=== PATIENT | female | born 1995 | race Caucasian/White ===

== ENCOUNTER → 2016-09-19 | Outpatient (CLI) | payer BC, OTHER ==
[~2016-09-19] MED LIST: PRENTAB26 PO; VNTHFA/IN INH; ZNTT/150 PO
[2016-09-19 15:25] LABS: URINE APPEARANCE CLOUDY (CLEAR); URINE BILIRUBIN NEG (NEG); URINE COLOR YELLOW; URINE EPITHELIAL CELL AUTO >30 /lpf (0-5); URINE NITRITE NEG (NEG); URINE SPECIFIC GRAVITY 1.024 (1.000-1.030); UROBILINOGEN NEG (NEG)
[2016-09-19 15:29] LABS: MANUAL MICROSCOPIC REQUIRED? NO; REVIEW REQ? YES
[2016-09-19 15:53] LABS: URINE MUCUS PRESENT (NONE PRSENT)
[2016-09-22 02:29] LABS: CHLAMYDIA TRACH RNA*** NOT DETECTED (NOT DETECTED); GC (NEIS GONORRHOEAE)RNA** NOT DETECTED (NOT DETECTED)
== END | disposition home or self-care (01) ==
LOC: C.LABSPEC 13:54
PROVIDERS: ATTEND Obstetrics & Gynecology
DX: Z34.90 Encounter for supervision of normal pregnancy, unspecified, unspecified trimester (principal)

== ENCOUNTER → 2016-09-19 | Outpatient (CLI) | payer BC, OTHER ==
[2016-09-19 12:15] LABS: BASO % 0.2 %; BASO ABS # 0.02 K/uL (0-0.2); COMPLETE YES; EOS % 0.6 %; HEMATOCRIT 36.9 % (37-47); IG% 0.3 %; LYMPH % 15.7 %; LYMPH ABS # 1.62 K/uL (1.2-3.4); MEAN CELL VOLUME 88.9 fL (80-100); MEAN CORPUSCULAR HEMOGLOBIN 30.6 pg (25-34); MEAN CORPUSCULAR HGB CONC 34.4 g/dl (32-36); MEAN PLATELET VOLUME 9.5 fL (7.4-10.4); MONO % 5.8 %; NEUT % 77.4 %; PLATELET COUNT 296 K/uL (130-400); RED BLOOD COUNT 4.15 M/uL (4.2-5.4); WHITE BLOOD COUNT 10.34 K/uL (4.8-10.8)
[2016-09-19 12:23] LABS: ALT/SGPT 17 U/L (12-78); AST/SGOT 8 U/L (15-37); BLOOD UREA NITROGEN 9 mg/dl (7-18); BUN/CREATININE RATIO 19.8 (10-20); CALCIUM 8.8 mg/dl (8.5-10.1); CARBON DIOXIDE 22 mmol/L (21-32); CHLORIDE 108 mmol/L (98-107); CREATININE 0.45 mg/dl (0.60-1.20); GLUCOSE 94 mg/dl (70-99); POTASSIUM 3.6 mmol/L (3.5-5.1); SODIUM 140 mmol/L (136-145)
[2016-09-19 12:26] LABS: ALB/GLOB RATIO 0.9 (0.9-2); ALKALINE PHOSPHATASE 65 U/L (45-117)
== END | disposition home or self-care (01) ==
LOC: C.LAB1850 10:22
PROVIDERS: ATTEND Obstetrics & Gynecology
DX: Z34.90 Encounter for supervision of normal pregnancy, unspecified, unspecified trimester (principal)

== ENCOUNTER → 2016-09-24 | Outpatient (CLI) | payer BC, OTHER ==
[2016-09-24 18:14] LABS: PATIENT HEIGHT 165.1 cm
[2016-09-24 19:42] LABS: URINE TOTAL PROTEIN 14.2 mg/dl (0-11.9)
[2016-09-24 20:49] LABS: CREATININE 0.43 mg/dl (0.6-1.2); URINE TOTAL PROTEIN CALC 262.7 mg/24 hr (0-149.1)
== END | disposition home or self-care (01) ==
LOC: C.LAB 17:45
PROVIDERS: ATTEND Obstetrics & Gynecology
DX: O09.91 Supervision of high risk pregnancy, unspecified, first trimester (principal); Z3A.00 Weeks of gestation of pregnancy not specified

== ENCOUNTER 2016-10-11 19:35 | Emergency (ER) | payer BC, OTHER ==
[~2016-10-11] VITALS: Ht 162.6 cm; Wt 94.7 kg
[~2016-10-11 19:35] MED LIST changes: -VNTHFA/IN INH; -ZNTT/150 PO
[2016-10-11 19:37] VITALS: TEMP 36.4; Ht 162.6 cm; Wt 94.7 kg
[2016-10-11 21:39] LABS: BASO % 0.1 %; BASO ABS # 0.01 K/uL (0-0.2); COMPLETE YES; EOS % 0.9 %; HEMATOCRIT 35.8 % (37-47); IG% 0.4 %; LYMPH % 21.6 %; LYMPH ABS # 2.27 K/uL (1.2-3.4); MEAN CORPUSCULAR HEMOGLOBIN 30.7 pg (25-34); MEAN CORPUSCULAR HGB CONC 34.9 g/dl (32-36); MEAN PLATELET VOLUME 9.6 fL (7.4-10.4); MONO % 7.2 %; NEUT % 69.8 %; PLATELET COUNT 276 K/uL (130-400); RED BLOOD COUNT 4.07 M/uL (4.2-5.4); WHITE BLOOD COUNT 10.49 K/uL (4.8-10.8)
[2016-10-11 21:49] LABS: ALT/SGPT 17 U/L (12-78); BLOOD UREA NITROGEN 7 mg/dl (7-18); CALCIUM 9.2 mg/dl (8.5-10.1); CARBON DIOXIDE 23 mmol/L (21-32); CHLORIDE 106 mmol/L (98-107); CREATININE 0.46 mg/dl (0.60-1.20); GLUCOSE 98 mg/dl (70-99); POTASSIUM 3.5 mmol/L (3.5-5.1); SODIUM 139 mmol/L (136-145)
[2016-10-11 21:52] LABS: ALB/GLOB RATIO 0.8 (0.9-2); ALKALINE PHOSPHATASE 60 U/L (45-117); AST/SGOT 7 U/L (15-37)
--- NOTE | 2016-10-11 23:43 | EMERGENCY ROOM VISIT NOTE ---
History Report prepared by Martha: Ronnie Yan Under the Supervision of: Dr. Alexis Barger D.O. First contact with patient: 21:29 Chief Complaint: PELVIC PAIN Stated Complaint: LOW PELVIC PAIN, GETTING SICK, UNABLE TO EAT MUCH Nursing Triage Summary: Patient states "I was seen at [place] [facility] on saturday for pelvic pain and they found something on my uterus and I'm 4 months . I seen my baby doctor and I just can't get rid of the pain." History of Present Illness The patient is a 20 year old female who presents to the Emergency Room with complaints of persistent lower pelvic cramping pain beginning about 2 weeks ago. She reports she is 4 months and that her pain is worsened with bending or sitting. She notes she went to the ER in [place] and after blood work and an US, she was told it could be a cyst, tumor, or mass of blood on her uterus. She followed with her continuity tester and was told to take Tylenol for the pain. The patient states that the Tylenol is not helping to relieve her symptoms. She admits to being once before and gave . She notes she did have preeclampsia with the first . Source of History: patient Onset: about 2 weeks ago Position: pelvis (lower) Quality: cramping, other (pelvic pain) Review of Systems See HPI for pertinent positives & negatives. A total of 10 systems reviewed and were otherwise negative. Past Medical & Surgical Medical Problems: (1) induction of labor Family History No pertinent family history stated. Social History Smoking Status: Never Smoker Alcohol Use: none Drug Use: none Marital Status: single Current/Historical Medications Scheduled Multivit/Min/Iron/Fol Ac/Pren ( Vitamin), 1 TAB PO DAILY Allergies Coded Allergies: No Known Allergies (Unverified , 10/11/16) Physical Exam Vital Signs Date Time Temp Pulse Resp B/P Pulse Ox O2 Delivery O2 Flow Rate FiO2 10/11/16 21:11 91 18 129/80 98 Room Air 10/11/16 19:37 36.4 99 18 133/93 98 Room Air Physical Exam CONSTITUTIONAL/VITAL SIGNS: Reviewed / noted above. GENERAL: Non-toxic in appearance. INTEGUMENTARY: Warm, dry, and [place]. HEAD: Normocephalic. EYES: without scleral icterus or trauma. ENT/OROPHARYNX: clear and moist. LYMPHADENOPATHY/NECK: Is supple without lymphadenopathy or meningismus. RESPIRATORY: Lungs clear and equal. CARDIOVASCULAR: Regular rate and rhythm. GI/ABDOMEN: Soft and nontender. No organomegaly or pulsatile mass. No rebound or guarding. Normal bowel sounds. Slightly abdomen. EXTREMITIES: Warm and well perfused. BACK: No CVA tenderness. NEUROLOGICAL: Intact without focal deficits. PSYCHIATRIC: normal affect. MUSCULOSKELETAL: Normally developed with good muscle tone. Medical Decision & Procedures ER Provider Diagnostic Interpretation: Radiology results are stated below per my review and radiologist interpretation: US OB 2nd TRIMESTER: IUP measuring 14 weeks 5 days with heart rate of 157 bpm. Anterior placenta without abruption or previa. A myometrial contraction is noted during the exam. Grossly normal amniotic fluid volume. Closed cervix, 3.6 cm long. Unremarkable right ovary. Left ovary not identified. Radiologist: Elieser Nathan M.D. Laboratory Results 10/11/16 20:20 Red Blood Count 4.07, Mean Corpuscular Volume 88.0, Mean Corpuscular Hemoglobin 30.7, Mean Corpuscular Hemoglobin Concent 34.9, Mean Platelet Volume 9.6, Neutrophils (%) (Auto) 69.8, Lymphocytes (%) (Auto) 21.6, Monocytes (%) (Auto) 7.2, Eosinophils (%) (Auto) 0.9, Basophils (%) (Auto) 0.1, Neutrophils # (Auto) 7.32, Lymphocytes # (Auto) 2.27, Monocytes # (Auto) 0.76, Eosinophils # (Auto) 0.09, Basophils # (Auto) 0.01 10/11/16 20:20 Test 10/11/16 20:20 White Blood Count 10.49 K/uL (4.8-10.8) Red Blood Count 4.07 M/uL (4.2-5.4) Hemoglobin 12.5 g/dL (12.0-16.0) Hematocrit 35.8 % (37-47) Mean Corpuscular Volume 88.0 fL (80-100) Mean Corpuscular Hemoglobin 30.7 pg (25-34) Mean Corpuscular Hemoglobin Concent 34.9 g/dl (32-36) Platelet Count 276 K/uL (130-400) Mean Platelet Volume 9.6 fL (7.4-10.4) Neutrophils (%) (Auto) 69.8 % Lymphocytes (%) (Auto) 21.6 % Monocytes (%) (Auto) 7.2 % Eosinophils (%) (Auto) 0.9 % Basophils (%) (Auto) 0.1 % Neutrophils # (Auto) 7.32 K/uL (1.4-6.5) Lymphocytes # (Auto) 2.27 K/uL (1.2-3.4) Monocytes # (Auto) 0.76 K/uL (0.11-0.59) Eosinophils # (Auto) 0.09 K/uL (0-0.5) Basophils # (Auto) 0.01 K/uL (0-0.2) RDW Standard Deviation 39.9 fL (36.4-46.3) RDW Coefficient of Variation 12.4 % (11.5-14.5) Immature Granulocyte % (Auto) 0.4 % Immature Granulocyte # (Auto) 0.04 K/uL (0.00-0.02) Anion Gap 10.0 mmol/L (3-11) Est Creatinine Clear Calc Drug Dose 214.2 ml/min Estimated GFR () > 150.0 Estimated GFR (Non- 141.2 BUN/Creatinine Ratio 15.0 (10-20) Calcium Level 9.2 mg/dl (8.5-10.1) Total Bilirubin 0.2 mg/dl (0.2-1) Aspartate Amino Transf (AST/SGOT) 7 U/L (15-37) Alanine Aminotransferase (ALT/SGPT) 17 U/L (12-78) Alkaline Phosphatase 60 U/L (45-117) Total Protein 6.9 gm/dl (6.4-8.2) Albumin 3.1 gm/dl (3.4-5.0) Globulin 3.8 gm/dl (2.5-4.0) Albumin/Globulin Ratio 0.8 (0.9-2) Human Chorionic Gonadotropin, Quant 29811 mIU/mL Laboratory results as stated above per my review. ED Course 2128: Previous medical records were reviewed. The patient was evaluated in room A4B. A complete history and physical examination was performed. 5: On reevaluation, the patient is doing well. I discussed the results and findings with the patient. She verbalized agreement of the treatment plan. The patient was discharged home. Medical Decision Differential considered: pancreatitis, hepatitis, or acute cholecystitis, AAA, UTI, pyelonephritis, kidney stones, appendicitis, diverticulitis, shingles, bowel obstruction mesenteric ischemia, intussusception,hernia, ovarian torsion, ruptured ovarian cyst,ectopic , . This is a 20-year-old female who presents to the ED with a chief complaint of lower abdominal pain. The patient has been seen at [facility] earlier in the week and had an ultrasound. She states that the ultrasounds showed something abnormal. She followed up with Dr. Sanchez, her FUR REPAIRER on Saturday. She was told to take Tylenol for the pain. She presents today for reevaluation. She continues having the pain. She denies any vomiting or diarrhea. No constipation. No chest pains or shortness of breath. No urinary symptoms. No vaginal bleeding or abnormal discharge. The patient's physical exam revealed a slightly gravid abdomen without tenderness. Her exam is otherwise unremarkable. CBC and complete metabolic panel were unremarkable. Pelvic ultrasound is noted above. There were no cerumen abnormalities. The patient was felt to be stable for discharge. Impression Primary Impression: Lower abdominal pain Scribe Attestation The scribe's documentation has been prepared under my direction and personally reviewed by me in its entirety. I confirm that the note above accurately reflects all work, treatment, procedures, and medical decision making performed by me. Departure Information Dispostion Home / Self-Care Referrals Silvano Mtz M.D. ([place]) (PCP) Patient Instructions ED Pelvic Pain Mitra [facility] Additional Instructions Follow-up with your continuity tester for further evaluation. Follow-up with your doctor for further care and evaluation in 1-2 days. Return to the emergency department for worsening or new symptoms or any concerns. You have been examined and treated today on an emergency basis only. This is not a substitute for, or an effort to provide, complete comprehensive medical care. It is impossible to recognize and treat all injuries or illnesses in a single emergency department visit. It is therefore important that you follow up closely with your doctor. Call as soon as possible for an appointment.
[2016-10-11 23:50] VITALS: BP 119/72; PULSE 93; O2SAT 96
--- NOTE | 2016-10-12 07:06 | DIAGNOSTIC IMAGING REPORT ---
LIMITED (US) CLINICAL HISTORY: pelvic pain 4 months COMPARISON STUDY: No previous studies for comparison. FINDINGS: A single alive intrauterine gestation was visualized. The heart rate was 157. The femur measured 1.6 cm corresponding to an estimated postmenstrual age of 14 weeks and 5 days. The placenta was anterior. The maternal cervix was closed. Amniotic fluid volume appeared within normal limits. There is an anterior myometrial contraction. A detailed anatomic study was not performed. IMPRESSION: Single live intrauterine gestation. The estimated postmenstrual age is 14 weeks and 5 days. The placenta was anterior. There is no evidence of previa. Electronically signed by: Justyn Alejandra M.D. 10/12/2016 7:05 AM Dictated Date/Time: 10/12/2016 7:03 AM
== END 2016-10-11 23:47 | disposition home or self-care (01) ==
LOC: C.EDB 19:36 → C.EDA 23:47
DX: R10.2 Pelvic and perineal pain (principal); O36.72X1 Maternal care for viable fetus in abdominal pregnancy, second trimester, fetus 1; Z3A.14 14 weeks gestation of pregnancy

== ENCOUNTER → 2016-10-24 | Outpatient (CLI) | payer BC, OTHER ==
[~2016-10-24] MED LIST changes: +VNTHFA/IN INH; +ZNTT/150 PO
[2016-10-24 20:00] LABS: GTGD 50 Grams
== END | disposition home or self-care (01) ==
LOC: C.LAB1850 16:30
PROVIDERS: ATTEND Obstetrics & Gynecology
DX: O09.91 Supervision of high risk pregnancy, unspecified, first trimester (principal); Z3A.00 Weeks of gestation of pregnancy not specified

== ENCOUNTER → 2017-01-14 | Outpatient (CLI) | payer BC, OTHER ==
[2017-01-14 15:50] LABS: HEMATOCRIT 37.8 % (37-47)
[2017-01-14 17:06] LABS: URINE APPEARANCE CLEAR (CLEAR); URINE BILIRUBIN NEG (NEG); URINE COLOR YELLOW; URINE EPITHELIAL CELL AUTO 20-30 /lpf (0-5); URINE NITRITE NEG (NEG); URINE SPECIFIC GRAVITY 1.019 (1.000-1.030); UROBILINOGEN NEG (NEG)
[2017-01-14 17:15] LABS: MANUAL MICROSCOPIC REQUIRED? NO; REVIEW REQ? NO
[2017-01-14 18:20] LABS: GTGD 50 Grams
== END | disposition home or self-care (01) ==
LOC: C.LAB1850 14:22
PROVIDERS: ATTEND Obstetrics & Gynecology
DX: Z34.90 Encounter for supervision of normal pregnancy, unspecified, unspecified trimester (principal)

== ENCOUNTER → 2017-02-08 | Outpatient (CLI) | payer BC, OTHER ==
[~2017-02-08] VITALS: Ht 165.1 cm; Wt 93.0 kg
[2017-02-08 11:39] VITALS: Ht 165.1 cm; Wt 93.0 kg
[2017-02-08 11:41] LABS: URINE APPEARANCE CLEAR (CLEAR); URINE BILIRUBIN NEG (NEG); URINE COLOR YELLOW; URINE NITRITE NEG (NEG); URINE SPECIFIC GRAVITY 1.021 (1.000-1.030); UROBILINOGEN NEG (NEG)
[2017-02-08 11:59] LABS: MANUAL MICROSCOPIC REQUIRED? NO; REVIEW REQ? YES
[2017-02-08 12:17] LABS: URINE MUCUS PRESENT (NONE PRSENT)
== END ==
LOC: C.OPB 10:26 → C.LD 10:27 → UNDOADMIN 11:15 → C.OPB 11:24
PROVIDERS: ATTEND Obstetrics & Gynecology
DX: O26.893 Other specified pregnancy related conditions, third trimester (principal); R10.30 Lower abdominal pain, unspecified; Z3A.31 31 weeks gestation of pregnancy; Z87.440 Personal history of urinary (tract) infections

== ENCOUNTER → 2017-02-26 | Outpatient (CLI) | payer BC, OTHER | END | disposition home or self-care (01) | LOC: C.LABSPEC 11:17 | PROVIDERS: ATTEND Obstetrics & Gynecology | DX: N76.1 Subacute and chronic vaginitis (principal) ==

== ENCOUNTER → 2017-03-14 | Outpatient (CLI) | payer BC, OTHER | END | disposition home or self-care (01) | LOC: C.LABSPEC 17:44 | PROVIDERS: ATTEND Obstetrics & Gynecology | DX: Z34.83 Encounter for supervision of other normal pregnancy, third trimester (principal) ==

== ENCOUNTER → 2017-03-18 | Outpatient (CLI) | payer BC, OTHER ==
[2017-03-18 16:41] LABS: BASO % 0.1 %; BASO ABS # 0.01 K/uL (0-0.2); COMPLETE YES; EOS % 0.4 %; HEMATOCRIT 37.8 % (37-47); IG% 0.5 %; LYMPH % 17.9 %; LYMPH ABS # 1.71 K/uL (1.2-3.4); MEAN CELL VOLUME 88.3 fL (80-100); MEAN CORPUSCULAR HEMOGLOBIN 29.7 pg (25-34); MEAN CORPUSCULAR HGB CONC 33.6 g/dl (32-36); MEAN PLATELET VOLUME 10.4 fL (7.4-10.4); MONO % 6.4 %; NEUT % 74.7 %; PLATELET COUNT 220 K/uL (130-400); RED BLOOD COUNT 4.28 M/uL (4.2-5.4); WHITE BLOOD COUNT 9.56 K/uL (4.8-10.8)
[2017-03-18 17:02] LABS: ALT/SGPT 14 U/L (12-78); AST/SGOT 11 U/L (15-37); CREATININE 0.45 mg/dl (0.60-1.20); URIC ACID 4.3 mg/dl (2.6-7.2)
== END | disposition home or self-care (01) ==
LOC: C.LAB1850 16:05
PROVIDERS: ATTEND Obstetrics & Gynecology
DX: O10.013 Pre-existing essential hypertension complicating pregnancy, third trimester (principal); Z3A.00 Weeks of gestation of pregnancy not specified

== ENCOUNTER 2017-03-20 20:34 | Outpatient (CLI) | payer BC, OTHER ==
[~2017-03-20] VITALS: Ht 162.6 cm; Wt 97.5 kg
[~2017-03-20 20:34] MED LIST changes: -VNTHFA/IN INH; -ZNTT/150 PO
[2017-03-20] MEDS ORDERED: VNTHFA/IN INH (21:42)
[2017-03-20 21:43] VITALS: Ht 162.6 cm; Wt 97.5 kg
[2017-03-20 22:00] LABS: BASO % 0.1 %; BASO ABS # 0.01 K/uL (0-0.2); COMPLETE YES; EOS % 0.5 %; HEMATOCRIT 37.4 % (37-47); IG% 1.1 %; LYMPH % 23.1 %; LYMPH ABS # 2.18 K/uL (1.2-3.4); MEAN CORPUSCULAR HEMOGLOBIN 29.6 pg (25-34); MEAN CORPUSCULAR HGB CONC 33.7 g/dl (32-36); MEAN PLATELET VOLUME 10.3 fL (7.4-10.4); MONO % 7.4 %; NEUT % 67.8 %; PLATELET COUNT 224 K/uL (130-400); RED BLOOD COUNT 4.25 M/uL (4.2-5.4); WHITE BLOOD COUNT 9.45 K/uL (4.8-10.8)
[2017-03-20 22:25] LABS: ALT/SGPT 13 U/L (12-78); BLOOD UREA NITROGEN 8 mg/dl (7-18); BUN/CREATININE RATIO 17.7 (10-20); CALCIUM 8.8 mg/dl (8.5-10.1); CARBON DIOXIDE 21 mmol/L (21-32); CHLORIDE 109 mmol/L (98-107); CREATININE 0.43 mg/dl (0.60-1.20); GLUCOSE 80 mg/dl (70-99); POTASSIUM 3.6 mmol/L (3.5-5.1); SODIUM 137 mmol/L (136-145)
[2017-03-20 22:30] LABS: ALB/GLOB RATIO 0.5 (0.9-2); ALKALINE PHOSPHATASE 204 U/L (45-117); AST/SGOT 11 U/L (15-37); URIC ACID 3.8 mg/dl (2.6-7.2)
== END 2017-03-20 23:12 | disposition home or self-care (01) ==
LOC: C.LD 20:34 → C.OPB 20:34
PROVIDERS: ATTEND Obstetrics & Gynecology
DX: O99.89 Other specified diseases and conditions complicating pregnancy, childbirth and the puerperium (principal); R51 Headache; O16.3 Unspecified maternal hypertension, third trimester; Z3A.37 37 weeks gestation of pregnancy

== ENCOUNTER → 2017-03-20 | Outpatient (CLI) | payer BC, OTHER ==
[2017-03-20 15:40] LABS: PATIENT HEIGHT 162.6 cm
[2017-03-20 17:12] LABS: URINE TOTAL PROTEIN 14.3 mg/dl (0-11.9)
[2017-03-20 18:37] LABS: URINE TOTAL PROTEIN CALC 228.8 mg/24 hr (0-149.1)
[2017-03-20 18:38] LABS: CREATININE 0.48 mg/dl (0.6-1.2)
== END | disposition home or self-care (01) ==
LOC: C.LAB1850 15:27
PROVIDERS: ATTEND Obstetrics & Gynecology
DX: O10.013 Pre-existing essential hypertension complicating pregnancy, third trimester (principal)

== ENCOUNTER 2017-03-28 15:47 | Inpatient (IN) | payer BC, OTHER ==
[~2017-03-28] VITALS: Ht 165.1 cm; Wt 97.0 kg
[~2017-03-28 15:47] MED LIST changes: +VNTHFA/IN INH
[2017-03-28 16:26] LABS: BASO % 0.1 %; BASO ABS # 0.01 K/uL (0-0.2); EOS % 0.6 %; HEMATOCRIT 35.5 % (37-47); IG% 0.7 %; LYMPH % 19.7 %; LYMPH ABS # 1.58 K/uL (1.2-3.4); MEAN CORPUSCULAR HEMOGLOBIN 29.4 pg (25-34); MEAN PLATELET VOLUME 10.4 fL (7.4-10.4); MONO % 4.7 %; NEUT % 74.2 %; PLATELET COUNT 218 K/uL (130-400); RED BLOOD COUNT 4.08 M/uL (4.2-5.4); WHITE BLOOD COUNT 8.02 K/uL (4.8-10.8)
[2017-03-28 16:35] LABS: INR 0.9 (0.9-1.1); PROTHROMBIN TIME (PATIENT) 9.7 SECONDS (9.0-12.0)
[2017-03-28 16:44] LABS: ALT/SGPT 10 U/L (12-78); AST/SGOT 9 U/L (15-37); CREATININE 0.47 mg/dl (0.60-1.20)
[2017-03-28] MEDS ORDERED: LACTATED RINGER'S 1000ML 1,000 ML IV PRN (17:05)
[2017-03-28] MEDS ORDERED: LACTATED RINGER'S 1000ML 500 ML IV PRN ×2 (17:07→21:29)
[2017-03-28] MEDS ORDERED: OXYTOCIN 30 UNITS/500ML NSS IV PRN (17:15)
[2017-03-28 17:42] LABS: COMPLETE YES; MEAN CORPUSCULAR HGB CONC 33.8 g/dl (32-36)
[2017-03-28] MEDS: LACTATED RINGER'S 1000ML 1,000 ML IV SCH ×2 (18:20→23:22)
[2017-03-28 18:35] VITALS: Ht 165.1 cm; Wt 97.0 kg
[2017-03-28] MEDS ORDERED: ZNTT/150 PO (18:38)
[2017-03-28] MEDS ORDERED: EpHEDrine SULFATE INJ 50 MG/ML AMP ONE (20:12)
[2017-03-28] MEDS ORDERED: FENTANYL 2MCG/ML ROPIV 1.25MG/ML 100ML BAG EPI ONE (20:12)
[2017-03-28] MEDS ORDERED: BUPIVACAINE 0.25% 30 ML VIAL ONE (20:12)
[2017-03-28] MEDS ORDERED: FENTANYL CITRATE INJ 50 MCG/1 ML 2 ML VIAL ONE (20:13)
[2017-03-28] MEDS ORDERED: ONDANSETRON INJ 2 MG/ML 2 ML VIAL IV PRN (21:30)
[2017-03-28] MEDS ORDERED: NALOXONE HCL 0.4 MG/1 ML VIAL/CARP IV PRN (21:30)
[2017-03-28] MEDS ORDERED: EpHEDrine SULFATE INJ 50 MG/ML AMP IV PRN (21:30)
[2017-03-29 00:09] LABS: BASO % 0.1 %; BASO ABS # 0.01 K/uL (0-0.2); EOS % 0.1 %; HEMATOCRIT 37.1 % (37-47); IG% 0.5 %; LYMPH % 15.8 %; LYMPH ABS # 1.67 K/uL (1.2-3.4); MEAN CELL VOLUME 88.8 fL (80-100); MEAN CORPUSCULAR HEMOGLOBIN 29.4 pg (25-34); MEAN PLATELET VOLUME 10.3 fL (7.4-10.4); MONO % 6.2 %; NEUT % 77.3 %; PLATELET COUNT 225 K/uL (130-400); RED BLOOD COUNT 4.18 M/uL (4.2-5.4); WHITE BLOOD COUNT 10.59 K/uL (4.8-10.8)
[2017-03-29 00:21] LABS: INR 0.9 (0.9-1.1)
[2017-03-29 00:27] LABS: ALT/SGPT 11 U/L (12-78); AST/SGOT 8 U/L (15-37); CREATININE 0.47 mg/dl (0.60-1.20)
[2017-03-29 00:32] LABS: COMPLETE YES; MEAN CORPUSCULAR HGB CONC 33.2 g/dl (32-36)
[2017-03-29] MEDS ORDERED: LACTATED RINGER'S 1000ML 500 ML IV PRN ×2 (03:32→05:42)
[2017-03-29] MEDS ORDERED: OXYTOCIN 30 UNITS/500ML NSS IV PRN ×3 (03:45→09:45)
[2017-03-29] MEDS ORDERED: NURSING VERBAL MED ORDER ONE (04:00)
[2017-03-29] MEDS: FENTANYL 2MCG/ML ROPIV 1.25MG/ML 100ML BAG EPI PRN ×2 (04:09→07:13)
[2017-03-29] MEDS ORDERED: FENTANYL CITRATE INJ 50 MCG/1 ML 2 ML VIAL ONE (04:14)
[2017-03-29] MEDS ORDERED: BUPIVACAINE 0.25% 30 ML VIAL ONE (04:15)
[2017-03-29] MEDS ORDERED: CALCIUM CARBONATE 500 MG CHEWABLE PO PRN (08:15)
[2017-03-29] MEDS ORDERED: ACETAMINOPHEN/CODEINE 300/30MG TAB PO PRN ×2 (09:45)
[2017-03-29] MEDS ORDERED: ACETAMINOPHEN 325 MG TAB PO PRN (09:45)
[2017-03-29] MEDS ORDERED: SUPERCREAM 0.870 % 15GM JAR EXT PRN (09:45)
[2017-03-29] MEDS ORDERED: BENZOCAINE 20% AER SPR 82.5 GM CAN EXT PRN (09:45)
[2017-03-29] MEDS ORDERED: LANOLIN OINT EXT PRN ×2 (09:45)
[2017-03-29] MEDS: IBUPROFEN 600 MG TAB PO PRN ×2 (10:17→19:47)
--- NOTE | 2017-03-29 10:38 | DELIVERY SUMMARY ---
DATE OF OPERATION: 03/29/2017 Patient is a 21-year-old 2, para 1-0-0-1 white female, EDC of 04/09/2017, who presents to the office with chronic hypertension with superimposed preeclampsia. She was sent from the office. She received a cervical balloon, which progressed her to 2 cm. Pitocin was also started at the same time. She progressed slowly to 4 cm with the vertex of -2. Membranes were ruptured for clear fluid. She then proceeded more rapidly to full dilation and pushed effectively over intact perineum. The was delivered easily. Mouth and nasopharynx were suctioned on the perineum. There was spontaneous crying and movement of all four limbs. Placenta was manually removed, as it was stuck in the cervix, but was delivered intact with a 3-vessel cord. Perineum was intact. Estimated blood loss was 300 mL. Mother and infant were doing well after delivery. I attest to the content of the Intraoperative Record and any orders documented therein. Any exception s are noted below.
--- NOTE | 2017-03-29 10:54 | Anesthesia Procedure Note ---
Anesthesia Epidural Removal Nt Date & Time Mar 29, 2017 at 10:53 Vital Signs Pain Intensity: 10.0 Notes Mental Status: alert / awake / arousable, participated in evaluation Nausea / Vomiting: adequately controlled Pain: adequately controlled Airway Patency, RR, SpO2: stable & adequate BP & HR: stable & adequate Hydration State: stable & adequate Neuraxial Anesthesia: was administered, sensory block is resolving Anesthetic Complications: no major complications apparent, pt satisfied with anesthetic care Epidural: removed without complications, with tip intact
[2017-03-29 13:30] VITALS: BP 137/83; PULSE 91; TEMP 36.7; O2SAT 98
[2017-03-29] MEDS ORDERED: SODIUM CHLORIDE 0.9% 500ML 500 ML IV SCH (15:30)
[2017-03-29 16:35] VITALS: BP 142/98; PULSE 80; TEMP 36.7; O2SAT 98
--- NOTE | 2017-03-29 17:00 | Discharge Instructions ---
Discharge Instructions Date of Service Mar 29, 2017. Admission Reason for Admission: Chronic Hypertension In Obstetric Context In Third Discharge Discharge Diagnosis / Problem: after delivery Discharge Goals Goal(s): Routine recovery after delivery Medications Continue Dispensed Medications: supercream, dermaplast, tucks, lansinoh Activity Recommendations Activity Limitations: per Instructions/Follow-up section . Instructions / Follow-Up Instructions / Follow-Up ACTIVITY RECOMMENDATIONS: * Gradual return to full activity over the next 2-3 weeks. * No lifting - nothing heavier than baby over the next 2-3 weeks. * Do not engage in vigorous exercise, sexual activity or sports until cleared by your physician. * Do not drive or operate any motorized equipment until cleared by your physician. * You may shower/bathe daily. MEDICATIONS: For discomfort or pain, you may use Acetaminophen (Tylenol), Ibuprofen (Advil), or Naproxen (Aleve) following the package directions. For constipation you may use Colace following the package directions. BREAST CARE: If you are not breast feeding: * Wear a supportive bra 24 hours a day for one to two weeks. * Avoid stimulating your breasts and nipples as much as possible during the first few weeks after delivery. * When taking a shower, have the warm water hit your back, not breasts. * When your breasts feel full, apply ice packs. Usually three to four times a day helps ease the discomfort. * Take a mild pain medication (Tylenol / Motrin) when you are uncomfortable. If breast feeding: * Use breast milk to lubricate nipples. Lansinoh cream may be used for sore nipples. You do not need to remove cream prior to breast feeding. If using a different brand of cream, check the label for directions regarding removal of cream prior to nursing. * Wear a supportive bra. * If having problems with breasts or breast feeding, call a wound care center consultant or your health care provider. EPISIOTOMY CARE: After delivery, if you have an episiotomy (stitches), the following steps will ease discomfort and aid healing. * For the first 24 hours after delivery, place ice packs next to your episiotomy to help reduce swelling. * After the first 24 hour-period, sitz baths, either portable or in the tub, are suggested. A shower with a shower arm sprayed over the episiotomy may be comforting. * Rebecca care should be done after each voiding and bowel movement. Squirt warm water from a plastic bottle over the perineum (region of the body between the anus and urinary opening) and pat dry. * Use Dermoplast to ease discomfort. Shake container. [place] directly over the episiotomy. Place a Tucks on a clean sanitary pad next to your episiotomy. SPECIAL CARE INSTRUCTIONS: When you are discharged from the hospital, it is important for you to follow the instructions listed below: * During the first week at home, you should be able to care for yourself and your baby. In addition, the usual light household activities are encouraged. * Limit your activities to the way you feel. Do not try to clean the house or move furniture. Be sensible. * If you actively engage in sports and have done so up until the time of your delivery, you may resume these activities as soon as you feel able. This may take up to one month or even longer. Use good judgment. * Continue to take your vitamins for at least six weeks after the of your baby. * Your diet need not be limited unless you were on a special diet before your delivery. Breast-feeding mothers need around 2500 calories per day and at least 64-80 ounces of fluid per day (8 to 10 glasses). * You should eat foods from the four major food groups. Crash diets or fad diets are to be avoided. Eating lean meats, fresh fruits and vegetables, low-fat dairy products, high fiber foods and a regular exercise program, will help you get back to your pre- weight without putting your health at risk. * Constipation is sometimes a problem after delivery. Take a mild laxative as needed. If breast feeding, Milk of Magnesia is acceptable to use. You may use a suppository or Fleets enema if no episiotomy. * A daily shower or tub bath is suggested. Be sure to thoroughly and gently dry the perineum. * A bloody vaginal discharge will usually continue until around four weeks post . A small amount of bleeding may continue for as long as six weeks. Vaginal discharge changes from the bright red bleeding after delivery to pink then brownish and finally yellowish-pink before becoming white and disappearing. * Bleeding may increase with activity. Your first period may come in 4-8 weeks. If you are breast feeding, your period may be delayed even longer. * [place] (sex) can begin whenever both you and your partner feel comfortable and do not have any form of genital infection. It is recommended that you wait at least six weeks for internal and external healing to occur. If you have questions, please talk to your health care practitioner. A condom should be used to prevent infection and . * Foreplay, gentle intercourse and lubrication is very important the first several times to prevent pain. A water-based lubricant such as K-Y jelly or Astroglide may be used. * If you have RH negative blood and your baby is RH positive, you will receive RHOGAM by injection prior to discharge. The nurse will give you a card to keep with you that has the date and place that you received RHOGAM after delivery. * During your care, you had a Rubella screen done to check for the presence of rubella antibodies in your blood. If your test was negative, you will receive a Rubella vaccine prior to discharge. This vaccine may cause a fever, soreness at the injection site and flu-like symptoms. If these symptoms persist, notify your health care practitioner. is not advised for one month after a Rubella vaccine. * Verbalizes understanding of car seat law as reviewed with patient nursing. * Car Seat hand-out given and reviewed with patient by nursing. * Shaken baby information reviewed with patient by nursing. Call you doctor if: * Heavy bleeding (saturating several pads an hour) or passing clots the size of your fist. * A fever >101 degrees F (38.3 degrees C) on two occasions four hours apart and /or chills. * Unusual pain in the pelvic or vaginal areas. * "Baby Blues" lasting longer than two weeks. If you have any questions or concerns, call your health care practitioner at . FOLLOW UP VISIT: * Please call the office at to schedule a 6 week examination. It is important you keep this appointment. It is important for you to make arrangements for either yearly or twice yearly check-ups thereafter. Current Hospital Diet Patient's current hospital diet: Regular OB Diet Discharge Diet Recommended Diet: Regular Diet Pending Studies Studies pending at discharge: no Medical Emergencies . Who to Call and When: Medical Emergencies: If at any time you feel your situation is an emergency, please call 911 immediately. . Non-Emergent Contact Non-Emergency issues call your: [employer] Infrastructure Consultant . . "Provider Documentation" section prepared by Homer Durán. . VTE Core Measure Inpt VTE Proph given/why not?: Treatment not indicated
[2017-03-29 18:25] VITALS: BP_SYST 142; BP_SYST 146; BP_DIAS 95; BP_DIAS 98; PULSE 80
[2017-03-29 18:50] LABS: HEMATOCRIT 33.8 % (37-47); MEAN CELL VOLUME 88.7 fL (80-100); MEAN CORPUSCULAR HEMOGLOBIN 29.7 pg (25-34); MEAN CORPUSCULAR HGB CONC 33.4 g/dl (32-36); MEAN PLATELET VOLUME 9.7 fL (7.4-10.4); PLATELET COUNT 217 K/uL (130-400); RED BLOOD COUNT 3.81 M/uL (4.2-5.4); WHITE BLOOD COUNT 11.11 K/uL (4.8-10.8)
[2017-03-29 19:12] LABS: ALT/SGPT 12 U/L (12-78); BLOOD UREA NITROGEN 9 mg/dl (7-18); BUN/CREATININE RATIO 19.6 (10-20); CALCIUM 9.2 mg/dl (8.5-10.1); CARBON DIOXIDE 23 mmol/L (21-32); CHLORIDE 110 mmol/L (98-107); CREATININE 0.48 mg/dl (0.60-1.20); GLUCOSE 117 mg/dl (70-99); POTASSIUM 3.8 mmol/L (3.5-5.1); SODIUM 141 mmol/L (136-145)
[2017-03-29 19:15] LABS: ALB/GLOB RATIO 0.6 (0.9-2); ALKALINE PHOSPHATASE 183 U/L (45-117); AST/SGOT 14 U/L (15-37)
[2017-03-29 19:40] VITALS: BP 123/80; PULSE 80; TEMP 36.7; O2SAT 97
[2017-03-29] MEDS: DOCUSATE SODIUM 100 MG CAP PO SCH (19:47)
[2017-03-29 23:40] VITALS: BP 124/86; PULSE 85; TEMP 36.8; O2SAT 98
[2017-03-30 04:05] VITALS: BP 132/87; PULSE 90; TEMP 36.7; O2SAT 98
--- NOTE | 2017-03-30 05:57 | OB/GYN Progress Note ---
PAN CLEANER Progress Note Date of Service Mar 30, 2017. Subjective conversation w/ patient, physical exam, chart review, lab review Ambulation: ambulating normally Voiding: no voiding problems Diet Tolerance: Regular Diet Lochia: Small Feeding Type: Bottle Feeding Pain: mild pain Review of Systems Constitutional: No fever Respiratory: No shortness of breath Cardiac: No chest pain Abdomen: No nausea, No vomiting Female : No dysuria Objective Vital Signs Date Time Temp Pulse Resp B/P (MAP) Pulse Ox O2 Delivery O2 Flow Rate FiO2 03/30/17 04:05 36.7 90 18 132/87 (102) 98 Room Air 03/29/17 23:40 36.8 85 16 124/86 (99) 98 Room Air 03/29/17 23:40 98 Room Air 03/29/17 19:40 36.7 80 18 123/80 (94) 97 Room Air 03/29/17 18:25 80 18 142/98 (113) 146/95 (112) 03/29/17 16:35 36.7 80 16 142/98 (113) 98 Room Air 03/29/17 16:35 98 Room Air 03/29/17 13:30 36.7 91 16 137/83 (101) 98 Room Air 03/29/17 13:30 98 Room Air Physical Exam General Appearance: WELL-APPEARING Respiratory/Chest: lungs clear, normal breath sounds, no respiratory distress Cardiovascular: regular rate, rhythm Abdomen: normal bowel sounds, non tender, soft Fundus: Firm, Relation to Umbilicus (1 below U) Extremities: non-tender, no pedal edema Laboratory Results Last 24 Hours Test 03/29/17 18:40 03/30/17 04:44 White Blood Count 11.11 K/uL Red Blood Count 3.81 M/uL Hemoglobin 11.3 g/dL Hematocrit 33.8 % Mean Corpuscular Volume 88.7 fL Mean Corpuscular Hemoglobin 29.7 pg Mean Corpuscular Hemoglobin Concent 33.4 g/dl RDW Standard Deviation 45.4 fL RDW Coefficient of Variation 14.1 % Platelet Count 217 K/uL Mean Platelet Volume 9.7 fL Sodium Level 141 mmol/L Potassium Level 3.8 mmol/L Chloride Level 110 mmol/L Carbon Dioxide Level 23 mmol/L Anion Gap 8.0 mmol/L Blood Urea Nitrogen 9 mg/dl Creatinine 0.48 mg/dl Est Creatinine Clear Calc Drug Dose 210.1 ml/min Estimated GFR () > 150.0 Estimated GFR (Non- 138.3 BUN/Creatinine Ratio 19.6 Random Glucose 117 mg/dl Calcium Level 9.2 mg/dl Total Bilirubin 0.2 mg/dl Aspartate Amino Transf (AST/SGOT) 14 U/L Alanine Aminotransferase (ALT/SGPT) 12 U/L Alkaline Phosphatase 183 U/L Total Protein 5.5 gm/dl Albumin 2.1 gm/dl Globulin 3.4 gm/dl Albumin/Globulin Ratio 0.6 Medications Current Inpatient Medications Medications (Trade) Dose Ordered Sig/Shannon Route Start Time Stop Time Status Last Admin Dose Admin Lactated Ringer's 1,000 ml @ 125 mls/hr Q8H IV 03/28/17 17:05 03/30/17 17:04 03/28/17 23:22 125 MLS/HR Oxytocin (Pitocin IV) 30 units UD PRN IV 03/28/17 17:15 04/27/17 17:14 03/28/17 18:21 30 UNITS Oxytocin (Pitocin IV) 30 units UD PRN IV 03/29/17 03:45 04/28/17 03:44 Oxytocin (Pitocin IV) 30 units UD PRN IV 03/29/17 05:45 04/28/17 05:44 Lactated Ringer's 500 ml @ 999 mls/hr Q31M PRN IV 03/29/17 05:42 04/28/17 05:41 Calcium Carbonate (Tums Chew Tab) 500 mg Q6 PRN PO 03/29/17 08:15 04/28/17 08:14 Oxytocin (Pitocin IV) 30 units UD PRN IV 03/29/17 09:45 04/28/17 09:44 Benzocaine (Dermoplast Aero Spr) 1 appln PRN PRN EXT 03/29/17 09:45 04/28/17 09:44 03/29/17 16:53 1 APPLN Cocaine HCl (Supercream 0.870% Cr) BID PRN EXT 03/29/17 09:45 04/12/17 09:44 03/29/17 16:54 15 GM Lanolin (Lanolin Oint) PRN PRN EXT 03/29/17 09:45 04/28/17 09:44 Prenat Multivit/ [place]/Iron/Folic Ac ( Vitamin Tab) 1 tab DAILY PO 03/30/17 08:00 04/29/17 07:59 Ibuprofen (Motrin Tab) 600 mg Q4H PRN PO 03/29/17 09:45 04/28/17 09:44 03/29/17 19:47 600 MG Acetaminophen (Tylenol Tab) 650 mg Q6H PRN PO 03/29/17 09:45 04/28/17 09:44 Acetaminophen/ Codeine Phosphate (Tylenol w/ Codeine #3 Tab) 1 tab Q4H PRN PO 03/29/17 09:45 04/28/17 09:44 Acetaminophen/ Codeine Phosphate (Tylenol w/ Codeine #3 Tab) 2 tab Q4H PRN PO 03/29/17 09:45 04/28/17 09:44 Bisacodyl (Dulcolax Tab) 5 mg 20 PO 03/30/17 20:00 03/30/17 20:01 Docusate Sodium (coLACE CAP) 100 mg BID PO 03/29/17 20:00 04/28/17 19:59 03/29/17 19:47 100 MG Assessment and Plan Post- Day Number: 1 Continue Routine Care: A/P: This is a 21 y/o female, , PPD#1 s/p normal vaginal delivery. She is ambulating and clinically stable. Plan: - Vitals signs are reviewed and WNL (Tmax 36.8 ) - Last Hgb is 11.3 (03/29). This AM pending - Blood type A+, GBS neg, Rubella Equivocal - Routine care - Encourage ambulation, monitor and control pain with medication as needed, continue with regular diet as tolerated and monitor lochia - Stool softeners and sitz bath recommended - Encourage breast feeding and educate about breast feeding Resident Physician Supervision Note: I was present with Dr. Durán during the history and exam. I discussed the case with the resident and agree with the findings and plan as documented in the note. Any exceptions or clarifications are listed here: Pt carried dx of preeclampsia superimposed on CHTN yesterday. She complained of visual change yesterday evening when she was having elevated blood pressures. Her labs returned normal and her bps normalized. She feels well this am. DTRs +1, no clonus. She denies visual change. On and off ALANIZ but feels related to being tired. She wants to consider going home. I rec a longer course today so I can see more BPs and that she does not having any worsening sx and will consider it. Documented By: Radha Aldana Resident Involvement: Resident Care Provided Care Provided: OB Delivery
[2017-03-30 07:02] LABS: HEMATOCRIT 34.1 % (37-47)
[2017-03-30 07:30] VITALS: BP 120/79; PULSE 80; TEMP 36.8
[2017-03-30] MEDS ORDERED: PRENATAL VITAMIN TAB PO SCH (08:00)
[2017-03-30] MEDS: DOCUSATE SODIUM 100 MG CAP PO SCH (08:16)
[2017-03-30 12:10] VITALS: BP 131/92; PULSE 65
[2017-03-30 12:15] VITALS: BP 111/75; PULSE 74
[2017-03-30 15:30] VITALS: BP 139/95; PULSE 87; TEMP 36.9
[2017-03-30] MEDS: IBUPROFEN 600 MG TAB PO PRN (17:00)
[2017-03-30] MEDS ORDERED: NURSING VERBAL MED ORDER ONE (17:00)
[2017-03-30] MEDS ORDERED: MEASLES, MUMPS & RUBELLA VIRUS VIAL SQ. ONE (17:30)
[2017-03-30 19:00] VITALS: BP_DIAS 95; PULSE 87; TEMP 36.9
[2017-03-30] MEDS ORDERED: BISACODYL 5 MG TABEC PO SCH (20:00)
== END 2017-03-30 19:45 | disposition home or self-care (01) | DRG 775 ==
LOC: C.OPB 15:47 → C.LD 15:49 → C.OPB 17:07 → C.LD 17:07 → C.OBG 03-29 12:49
PROVIDERS: ADMIT Obstetrics & Gynecology; ATTEND Obstetrics & Gynecology
PROC: 10E0XZZ Delivery of Products of Conception, External Approach (ICD-10-PCS; principal; 2017-03-29)
DX: O14.94 Unspecified pre-eclampsia, complicating childbirth (principal); Z3A.38 38 weeks gestation of pregnancy; Z37.0 Single live birth

== ENCOUNTER → 2017-09-02 | Day surgery (SDC) | payer BC, OTHER ==
[2017-08-01 12:13] VITALS: Ht 162.6 cm; Wt 86.4 kg
[~2017-09-02] VITALS: Ht 162.6 cm; Wt 86.4 kg
[~2017-09-02] MED LIST changes: -PRENTAB26 PO
== END | disposition home or self-care (01) ==
LOC: EDSTATUS 07:00 → C.PAT 15:48
PROVIDERS: ATTEND Obstetrics & Gynecology
DX: Z30.2 Encounter for sterilization (principal)

== ENCOUNTER → 2017-09-09 | Outpatient (CLI) | payer BC, OTHER | END | disposition home or self-care (01) | LOC: C.LABMFLN 10:16 | PROVIDERS: ATTEND Obstetrics & Gynecology | DX: Z22.322 Carrier or suspected carrier of Methicillin resistant Staphylococcus aureus (principal); N92.6 Irregular menstruation, unspecified ==

== ENCOUNTER 2022-05-15 10:32 | Inpatient (IN) ==
[2022-05-15 11:49] LABS: Basophils # (auto) 0.03 K/uL (0-0.2); Basophils % (auto) 0.3 %; Eosinophils # (auto) 0.04 K/uL (0-0.50); Eosinophils % (auto) 0.4 %; Hemoglobin 12.2 g/dl (12.0-16.0); Immature Granulocytes # (auto) 0.07 K/uL (0.00-0.02); Immature Granulocytes % (auto) 0.8 %; Lymphocytes # (auto) 1.69 K/uL (1.2-3.4); Lymphocytes % (auto) 18.3 %; Mean Corpuscular Hemoglobin 29.7 pg (25.0-34.0); Mean Corpuscular Hgb Conc 33.9 g/dL (32.0-36.0); Mean Corpuscular Volume 87.6 fL (80.0-100.0); Mean Platelet Volume 10.3 fL (9.4-12.3); Monocytes # (auto) 0.57 K/uL (0.24-0.82); Monocytes % (auto) 6.2 %; Neutrophils # (auto) 6.86 K/uL (1.4-6.5); Platelet Count 260 K/uL (130-400); RDW Coefficient of Variation 13.2 % (11.5-14.5); RDW Standard Deviation 41.4 fL (36.4-46.3); Red Blood Count 4.11 M/uL (3.93-5.22); White Blood Count 9.26 K/ul (4.8-10.8)
[2022-05-15 12:13] LABS: Alanine Aminotransferase 6 U/L (7-52); Albumin Globulin Ratio 1.1 (0.9-2); Alkaline Phosphatase 176 U/L (34-104); Anion Gap 9 (3-11); Aspartate Aminotransferase 9 U/L (13-39); BUN Creatinine Ratio 22.2 (10-20); Bilirubin,Total 0.2 mg/dl (0.2-1.0); Blood Urea Nitrogen 8 mg/dl (6-23); Calcium 8.9 mg/dl (8.5-10.1); Carbon Dioxide 21 mmol/L (21-32); Chloride 105 mmol/L (98-107); Est GFR (African American) > 150.0 ml/min; Est GFR (Non-African American) 146.8 ml/min; Globulin 2.8 gm/dl (2.5-4.0); Glucose 71 mg/dl (70-99(Fasting)); Potassium 3.8 mmol/L (3.5-5.1); Sodium 135 mmol/L (136-145); Total Protein 5.8 gm/dl (6.0-8.3)
[2022-05-15] MEDS ORDERED: ACETAMINOPHEN 500 MG TAB PO ONE (12:49)
[2022-05-15] MEDS ORDERED: METOCLOPRAMIDE HCL 10 MG TABLET PO ONE (12:49)
[2022-05-15 13:17] LABS: Creatinine Urine Random 118.4 mg/dl; Protein Creatinine Ratio Urine 0.2 (0-0.2)
[2022-05-15] MEDS ORDERED: LIDOCAINE 1% LOCAL 20 ML VIAL INFIL PRN (14:29)
[2022-05-15] MEDS ORDERED: MAG SULFATE 4GM BOLUS FROM BAG IV ONE (14:29)
[2022-05-15] MEDS ORDERED: OXYTOCIN 30 UNITS/500 ML BAG IV PRN ×2 (14:29→14:36)
--- NOTE | 2022-05-15 14:54 | History & Physical Report ---
Date of Service May 15, 2022 Assessment & Plan (1) Pre-eclampsia, severe: Plan: 26 yo at 37 3/7 wga presents now w/ pre-eclampsia w/ SF VSS Fetus cat 1 PET w/ SF - pt's labwork is wnl. Reviewed pt's symptoms. Now she is having this worsened ALANIZ that is no longer relieved by medications so discussed concern that this meets criteria for pre-eclampsia w/ SF by symptoms now. Would recommend starting induction today and initiating magnesium for seizure ppx. Pt verbalized understanding and agreeable to plan Labor - will plan to start pit/hi once moved to labor room, was closed in office. BSUS confirmed cephalic GBS neg epidural PRN History of Present Illness Chief Complaint: ALANIZ Primary Care Provider: Vida Katz PA-C 26 yo at 37 3/7 wga presents to L&D for further eval from [facility] due to worsened ALANIZ in the setting of known ghtn. Pt was dx with gHTN on 05/07. Has had normal monitoring/testing since then. Was seen for [facility] w/ plan for induction tomorrow however noted unrelenting ALANIZ and tylenol/reglan not touching anymore so presented to L&D for further eval. On L&D, pt reports that she has had this ALANIZ that used to be reduced with tylenol and reglan, never fully went away but made it manageable. Over the last two days, tylenol and reglan has not touched it like it used to and she has been laid up in bed because of this. On and off blurry vision, none currently. Denies RUQ/epigastric pain. 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 Hx: G1 2011 at 38 wks, PET G2 2017 at 38 wks, PET G3 current Denies hx STIs Allergies Allergy/AdvReac Type Severity Reaction Status Date / Time oxycodone Allergy Severe rash and Verified 05/10/22 08:48 hives Home Medications Medication Instructions Recorded Confirmed Type aspirin 81 mg tablet,delayed 81 mg PO DAILY 12/07/21 05/15/22 History release sbrbuqga-ggf-Sc-FA 1 mg 1 tab PO DAILY 12/07/21 05/15/22 History tablet lansoprazole 30 mg capsule,delayed 30 mg PO DAILY #30 caps 03/06/22 05/15/22 Rx release (Prevacid) ondansetron HCl 4 mg tablet 4 mg PO Q8H PRN nausea and 03/06/22 05/15/22 Rx vomiting #30 tabs seqkjdfust-qoptkskrhkrnq-cqdkftzd 1 tab PO Q6H PRN pain #20 tabs 04/20/22 05/15/22 Rx 50 mg-325 mg-40 mg tablet prochlorperazine maleate 10 mg 10 mg PO DAILY #30 tabs 04/20/22 05/15/22 Rx tablet (Compazine) metoclopramide HCl 10 mg tablet 10 mg PO Q6H PRN headache #14 tabs 04/27/22 05/15/22 Rx Patient History Medical History (Updated 05/15/22 @ 15:02 by Kimberly Hutchison MD) H/O varicella 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 Normal paps since Pre-eclampsia with last 2 pregnancies Surgical History History of adenoidectomy S/P cholecystectomy S/P tonsillectomy [place] teeth extracted Family History Grandmother (Maternal) Diabetes Hypertension Grandfather (Maternal) Diabetes Hypertension Grandmother (Paternal) Diabetes Hypertension Grandfather (Paternal) Diabetes Hypertension Sister Hemophilia Brother Asthma Mother Hypertension Denies family history of Ovarian cancer Prostate cancer Breast cancer Lung cancer Social History Smoking Status: Former smoker Second Hand Exposure: No; Hx Alcohol Use: No Hx Substance Use: No Preferred Language: Divehi Communication Ability: Effective Manager Mac Required: No Beliefs That Will Affect Care: None marital status: Single marital status details: GERRY Roberts (30) [phone] Current Living Situation: Significant Other Current Living Situation Comment: FOB and children +1 dog current occupational status: employed 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 Feels Safe at Home: Yes Assistive Devices: None Physical Exam Genitourinary: OB Exam Abdomen: + vertex (confirmed by bsus) OB Exam Monitor Tracing: + external FHT monitor used, + external uterine monitor used and + category I (125/mod/+accel/-decel) SVE c/l/h by provider in office Results & Data ([place]) Vital Signs (Past 12 Hours) Vital Signs Pulse BP 05/15/22 14:08 103 H 128/84 05/15/22 12:16 93 H 129/82 05/15/22 10:49 104 H 139/100 Laboratory Results OB Labs: Blood Type A Positive 11/01/21 Antibody Screen NEGATIVE 11/01/21 Hemoglobin 12.7 g/dl (12.0-16.0) 05/10/22 Hematocrit 38.0 % (34.1-44.9) 05/10/22 Mean Corpuscular Volume 88.6 fL (80.0-100.0) 05/10/22 Platelet Count 254 K/uL (130-400) 05/10/22 Rubella IgG Antibody Non Immune (Immune) L 11/01/21 Rapid Plasma Reagin Nonreactive (Nonreactive) 11/01/21 Hepatitis B Surface Antigen. NON-REACTIVE (NON-REACTIVE) 11/01/21 Hepatitis C Antibody (EIA) NON-REACTIVE (NON-REACTIVE) 11/01/21 HIV (1&2) Ag and Ab Confirmation NON-REACTIVE (NON-REACTIVE) 11/01/21 Glucose 1 Hour 50 gm Load 142 mg/dl (70-130) H 12/19/21 Maternal Serum Alpha Fetoprotein 30.6 ng/mL 12/19/21 OB Optional Labs: Chlamydia trachomatis RNA NOT DETECTED (NOT DETECTED) 10/23/21 Neisseria gonorrhoeae RNA NOT DETECTED (NOT DETECTED) 10/23/21 Alpha Fetoprotein Triple Screen SEE NOTE 12/19/21 Labs Reviewed: low risk panorama cf/sma neg afp neg 16 week 2 hr gtt passed. 28wk 2hr gtt passed--smp GBS neg 05/15/22 05/15/22 05/15/22 Range/Units 12:25 11:26 11:26 WBC 9.26 (4.8-10.8) K/ul RBC 4.11 (3.93-5.22) M/uL Hgb 12.2 (12.0-16.0) g/dl Hct 36.0 (34.1-44.9) % MCV 87.6 (80.0-100.0) fL MCH 29.7 (25.0-34.0) pg MCHC 33.9 (32.0-36.0) g/dL RDW Std Deviation 41.4 (36.4-46.3) fL RDW Coeff of Yonatan 13.2 (11.5-14.5) % Plt Count 260 (130-400) K/uL MPV 10.3 (9.4-12.3) fL Immature Gran % (Auto) 0.8 % Neut % (Auto) 74.0 % Lymph % (Auto) 18.3 % Saline % (Auto) 6.2 % Eos % (Auto) 0.4 % Baso % (Auto) 0.3 % Neut # (Auto) 6.86 H (1.4-6.5) K/uL Lymph # (Auto) 1.69 (1.2-3.4) K/uL Saline # (Auto) 0.57 (0.24-0.82) K/uL Eos # (Auto) 0.04 (0-0.50) K/uL Baso # (Auto) 0.03 (0-0.2) K/uL Immature Gran # (Auto) 0.07 H (0.00-0.02) K/uL Sodium 135 L (136-145) mmol/L Potassium 3.8 (3.5-5.1) mmol/L Chloride 105 (98-107) mmol/L Carbon Dioxide 21 (21-32) mmol/L Anion Gap 9 (3-11) BUN 8 (6-23) mg/dl Creatinine 0.36 L (0.6-1.2) mg/dl Est Cr Clr Drug Dosing Not Reportable Est GFR ( Amer) > 150.0 ml/min Est GFR (Non-Af Amer) 146.8 ml/min BUN/Creatinine Ratio 22.2 H (10-20) Glucose 71 (70-99(Fasting)) mg/dl Calcium 8.9 (8.5-10.1) mg/dl Total Bilirubin 0.2 (0.2-1.0) mg/dl AST 9 L (13-39) U/L ALT 6 L (7-52) U/L Alkaline Phosphatase 176 H (34-104) U/L Total Protein 5.8 L (6.0-8.3) gm/dl Albumin 3.0 L (3.4-5.0) gm/dl Globulin 2.8 (2.5-4.0) gm/dl Albumin/Globulin Ratio 1.1 (0.9-2) Ur Random Creatinine 118.4 mg/dl U Random Total Protein 26.0 H (0-11.9) mg/dl Protein/Creatinin Ratio 0.2 (0-0.2) Diagnostic Findings 05/10 EFW 39% ant plac Coding Level of Care Code None Diagnoses Pre-eclampsia, severe O14.10
[2022-05-15] MEDS: LACTATED RINGER'S 1,000 ML IV PRN (15:37)
[2022-05-15] MEDS: MAGNESIUM SULFATE / WTR 40 GM/1,000 ML BAG IV SCH (16:43)
--- NOTE | 2022-05-15 16:48 | Communication Note ---
Date of Service: May 15, 2022 Magnesium started for seizure ppx. Covid test neg. Discussed hi bulb placement and pt verbalized consent after risks vs benefits reviewed. 35cc fole y placed, pt tolerated well. Will start pit up to 10 while balloon is in
[2022-05-15] MEDS ORDERED: SODIUM CHLORIDE 0.9% INJ 10 ML VIAL ONE (21:21)
[2022-05-15] MEDS ORDERED: fentaNYL citrate 100 MCG/2 ML VIAL ONE (21:21)
[2022-05-15] MEDS ORDERED: BUPIVACAINE 0.25% 30 ML VIAL ONE (21:21)
[2022-05-15] MEDS ORDERED: ePHEDrine sulfate 50 MG/ML AMP ONE (21:21)
[2022-05-15] MEDS ORDERED: fentaNYL 2MCG/ML ROPIVACAINE 1.25MG/ML 100 ML BAG EPI ONE (21:22)
[2022-05-15] MEDS ORDERED: LIDOCAINE 2%/EPINEPHRINE 1:200,000 20 ML SDV ONE (21:22)
[2022-05-15] MEDS ORDERED: fentaNYL 2MCG/ML ROPIVACAINE 1.25MG/ML 100 ML BAG EPI PRN (21:30)
[2022-05-15] MEDS ORDERED: diphenhydrAMINE 50 MG/ML VIAL IV PRN (21:30)
[2022-05-15] MEDS ORDERED: ONDANSETRON INJ 2 MG/ML 2 ML VIAL IV PRN (21:30)
[2022-05-15] MEDS ORDERED: NALOXONE HCL 1 MG in SODIUM CHLORIDE 0.9% 1000ML 1,000 ML IV PRN (21:30)
[2022-05-15] MEDS ORDERED: NALOXONE HCL 0.4 MG/1 ML VIAL/CARP IV PRN (21:30)
--- NOTE | 2022-05-15 21:31 | Anesthesiology Consultation ---
Date of Service May 15, 2022 Assessment & Plan (1) Encounter for pre-operative examination: Chart Review Chart Review: Patient NOT seen in Pre Admission Testing and Acceptable Risk for Labor Epidural Consults Requested none History Height/Weight Height: 5 ft 4 in Weight: 95.254 kg Allergies Allergy/AdvReac Type Severity Reaction Status Date / Time oxycodone Allergy Severe rash and Verified 05/10/22 08:48 hives Medications Home Medications Medication Instructions Recorded Confirmed Last Taken aspirin 81 mg tablet,delayed 81 mg PO DAILY 12/07/21 05/15/22 05/08/22 06:30 release owcngntg-dgo-Aq-FA 1 mg 1 tab PO DAILY 12/07/21 05/15/22 05/08/22 06:30 tablet lansoprazole 30 mg capsule,delayed 30 mg PO DAILY #30 caps 03/06/22 05/15/22 05/08/22 06:30 release (Prevacid) ondansetron HCl 4 mg tablet 4 mg PO Q8H PRN nausea and 03/06/22 05/15/22 05/08/22 11:30 vomiting #30 tabs mwepjniboi-uzkcsyqbarwoe-hlowzzqm 1 tab PO Q6H PRN pain #20 tabs 04/20/22 05/15/22 05/08/22 11:30 50 mg-325 mg-40 mg tablet prochlorperazine maleate 10 mg 10 mg PO DAILY #30 tabs 04/20/22 05/15/22 21:00 tablet (Compazine) metoclopramide HCl 10 mg tablet 10 mg PO Q6H PRN headache #14 tabs 04/27/22 05/15/22 05/07/22 20:30 Active Medications Generic Name Dose Route Start Last Admin Trade Name Freq PRN Reason Stop Dose Admin Lactated Ringer's 1,000 mls @ 125 mls/hr 05/15/22 14:29 05/15/22 21:40 Lr IV 05/17/22 14:28 75 mls/hr .Q8H PRN Infusion L&D Protocol Protocol Magnesium Sulfate 40 gm in 1,000 mls @ 50 mls/hr 05/15/22 14:30 05/15/22 21:03 Magnesium Sulfate / Wtr IV 06/14/22 14:29 50 mls/hr .Q20H ADWOA Infusion Oxytocin 30 units in 500 mls @ 8 mls/hr 05/15/22 14:36 05/15/22 21:00 Pitocin IV 06/14/22 14:35 0.48 units/hr .Q24H PRN 8 mls/hr Labor Induction/Augmentation Titration Protocol 0.48 UNITS/HR Past Medical History Medical History H/O varicella HPV (human papilloma virus) infection 2011 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 Normal paps since Pre-eclampsia with last 2 pregnancies Exercise / Class Metabolic Activity II 4-5 Yardwork/Stairs/Walk up hill Past Family History Family History Grandmother (Maternal) Diabetes Hypertension Grandfather (Maternal) Diabetes Hypertension Grandmother (Paternal) Diabetes Hypertension Grandfather (Paternal) Diabetes Hypertension Sister Hemophilia Brother Asthma Mother Hypertension Denies family history of Ovarian cancer Prostate cancer Breast cancer Lung cancer Past Surgical History Surgical History History of adenoidectomy S/P cholecystectomy S/P tonsillectomy [place] teeth extracted Past Anesthesia History No Hx of Anesthesia Complications and No Family Hx of Anesthesia Complications Social History Smoking Status: Former smoker tobacco type: cigarettes Hx Alcohol Use: No Hx Substance Use: No substance use type: does not use Physical Exam Vital Signs Last Vital Signs Temp 36.6 C 05/15/22 19:05 Pulse 112 H 05/15/22 21:51 Resp 18 05/15/22 21:03 BP 148/98 H 05/15/22 21:50 Pulse Ox 98 05/15/22 21:51 O2 Del Method 05/15/22 19:05 Testing Laboratory Results 05/15/22 11:26 05/15/22 11:26 Blood Type A Positive 05/15/22 11:30 Antibody Screen NEGATIVE 05/15/22 11:30
--- NOTE | 2022-05-15 21:31 | Labor Progress Brief Note ---
Date of Service May 15, 2022 Subjective Desires epidural Assessment & Plan (1) Pre-eclampsia, severe: Plan: 26 yo at 37 3/7 wga presents now w/ pre-eclampsia w/ SF VSS Fetus cat 1 PET w/ SF - Doing ok on mag, Bps wnl Labor - hi palpated in vagina and removed, cervix 3-4cm. Pt desires epidural GBS neg epidural PRN Admission and Anticipated Discharge Date Admission Date: May 15, 2022 Physical Exam Genitourinary: Manual OB Exam: + cervical dilation (3-4), + cervical effacement 50% and + station high OB Exam Monitor Tracing: + external FHT monitor used, + external uterine monitor used (q3-4) and + category I (120/mod/+accel/-decel) Results & Data ([facility]) Vital Signs (Past 12 Hours) Vital Signs Temp Pulse Resp BP O2 Del Method 05/15/22 21:03 18 05/15/22 20:06 18 05/15/22 19:05 97.9 F 18 05/15/22 19:05 18 05/15/22 19:05 Room Air 05/15/22 16:36 20 05/15/22 21:16 93 H 05/15/22 21:16 137/92 05/15/22 21:00 18 05/15/22 21:00 18 05/15/22 21:01 103 H 05/15/22 21:01 139/91 05/15/22 20:46 93 H 05/15/22 20:46 137/95 05/15/22 20:30 18 05/15/22 20:30 18 05/15/22 20:31 93 H 05/15/22 20:31 127/80 05/15/22 20:16 99 H 05/15/22 20:16 131/82 05/15/22 20:00 18 05/15/22 20:00 18 05/15/22 20:03 84 05/15/22 20:03 134/89 05/15/22 19:46 90 05/15/22 19:46 133/83 05/15/22 19:30 18 05/15/22 19:30 18 05/15/22 19:05 18 05/15/22 19:05 97.9 F 18 05/15/22 19:31 88 05/15/22 19:31 134/79 05/15/22 19:17 88 05/15/22 19:17 143/97 H 05/15/22 19:02 85 05/15/22 19:02 140/92 05/15/22 18:47 89 05/15/22 18:47 134/90 05/15/22 16:14 20 05/15/22 16:14 20 05/15/22 18:32 90 05/15/22 18:32 139/96 05/15/22 17:47 20 05/15/22 17:47 97.7 F 20 05/15/22 18:16 83 05/15/22 18:16 137/94 05/15/22 17:47 94 H 05/15/22 17:47 164/95 H 05/15/22 17:31 98 H 05/15/22 17:31 136/90 05/15/22 17:16 83 05/15/22 17:16 128/85 05/15/22 17:01 85 05/15/22 17:01 133/83 05/15/22 16:47 100 H 05/15/22 16:47 130/77 05/15/22 16:31 94 H 05/15/22 16:31 133/85 05/15/22 16:13 100 H 05/15/22 16:13 132/84 05/15/22 16:16 98.8 F 20 05/15/22 14:08 103 H 128/84 05/15/22 12:16 93 H 129/82 05/15/22 10:49 104 H 139/100 Coding Level of Care Code None Diagnoses Pre-eclampsia, severe O14.10
--- NOTE | 2022-05-15 23:50 | Labor Progress Brief Note ---
Date of Service May 15, 2022 Subjective comfortable w/ epidural Assessment & Plan (1) Pre-eclampsia, severe: Plan: 26 yo at 37 3/7 wga presents now w/ pre-eclampsia w/ SF VSS Fetus cat 1 PET w/ SF - Doing ok on mag, Bps wnl, good uop Labor - pit at 8, continue induction. Still a bit high for arom, continue pit and will see if can w/ next check GBS neg epidural in place Admission and Anticipated Discharge Date Admission Date: May 15, 2022 Physical Exam Genitourinary: Manual OB Exam: + cervical dilation 4 cm, + cervical effacement 50% and + station high OB Exam Monitor Tracing: + external FHT monitor used, + external uterine monitor used (q4) and + category I (110/mod/+accel/-decel) Results & Data ([facility]) Vital Signs (Past 12 Hours) Vital Signs Temp Pulse Resp BP Pulse Ox O2 Del Method 05/15/22 23:30 18 05/15/22 22:15 18 05/15/22 21:03 18 05/15/22 20:06 18 05/15/22 19:05 97.9 F 18 05/15/22 19:05 18 05/15/22 19:05 Room Air 05/15/22 16:36 20 05/15/22 23:46 99 05/15/22 23:46 88 05/15/22 23:42 85 05/15/22 23:42 131/85 05/15/22 23:41 98 05/15/22 23:41 85 05/15/22 23:36 97 05/15/22 23:36 85 05/15/22 23:31 97 05/15/22 23:31 85 05/15/22 23:28 81 05/15/22 23:28 131/81 05/15/22 23:26 100 05/15/22 23:26 90 05/15/22 23:21 97 05/15/22 23:21 88 05/15/22 23:16 98 05/15/22 23:16 90 05/15/22 23:12 85 05/15/22 23:12 118/70 05/15/22 23:11 97 05/15/22 23:11 89 05/15/22 23:00 18 05/15/22 23:00 18 05/15/22 23:06 99 05/15/22 23:06 88 05/15/22 23:01 98 05/15/22 23:01 90 05/15/22 22:57 89 05/15/22 22:57 132/78 05/15/22 22:56 98 05/15/22 22:56 92 H 05/15/22 22:51 96 05/15/22 22:51 90 05/15/22 22:46 97 05/15/22 22:46 90 05/15/22 22:42 91 H 05/15/22 22:42 128/66 05/15/22 22:41 97 05/15/22 22:41 98 H 05/15/22 22:30 18 05/15/22 22:30 18 05/15/22 22:11 18 05/15/22 22:11 18 05/15/22 22:36 98 05/15/22 22:36 96 H 05/15/22 21:30 18 05/15/22 21:30 18 05/15/22 22:30 18 05/15/22 22:30 97.9 F 18 05/15/22 22:31 97 05/15/22 22:31 99 H 05/15/22 22:26 98 05/15/22 22:26 109 H 05/15/22 22:26 151/67 H 05/15/22 22:24 120 H 05/15/22 22:24 163/94 H 05/15/22 22:21 98 05/15/22 22:21 123 H 05/15/22 22:18 125 H 05/15/22 22:18 131/84 05/15/22 22:16 97 05/15/22 22:16 104 H 05/15/22 22:16 101 H 05/15/22 22:16 132/68 05/15/22 22:14 107 H 05/15/22 22:14 129/74 05/15/22 22:11 98 05/15/22 22:11 111 H 05/15/22 22:12 107 H 05/15/22 22:12 135/77 05/15/22 22:10 112 H 05/15/22 22:10 134/78 05/15/22 22:08 116 H 05/15/22 22:08 131/80 05/15/22 22:06 97 05/15/22 22:06 115 H 05/15/22 22:06 110 H 05/15/22 22:06 128/71 05/15/22 22:04 110 H 05/15/22 22:04 127/74 05/15/22 22:01 98 05/15/22 22:01 105 H 05/15/22 22:02 107 H 05/15/22 22:02 135/70 05/15/22 22:00 105 H 05/15/22 22:00 129/67 05/15/22 21:58 109 H 05/15/22 21:58 122/67 05/15/22 21:56 97 05/15/22 21:56 110 H 05/15/22 21:56 113 H 05/15/22 21:56 117/72 05/15/22 21:54 107 H 05/15/22 21:54 119/73 05/15/22 21:52 113 H 05/15/22 21:52 125/77 05/15/22 21:51 98 05/15/22 21:51 112 H 05/15/22 21:50 123 H 05/15/22 21:50 148/98 H 05/15/22 21:48 122 H 05/15/22 21:48 145/98 H 05/15/22 21:46 98 05/15/22 21:46 130 H 05/15/22 21:41 100 05/15/22 21:41 113 H 05/15/22 21:36 98 05/15/22 21:36 90 05/15/22 21:31 99 05/15/22 21:31 89 05/15/22 21:31 96 H 05/15/22 21:31 146/93 H 05/15/22 21:16 93 H 05/15/22 21:16 137/92 05/15/22 21:00 18 05/15/22 21:00 18 05/15/22 21:01 103 H 05/15/22 21:01 139/91 05/15/22 20:46 93 H 05/15/22 20:46 137/95 05/15/22 20:30 18 05/15/22 20:30 18 05/15/22 20:31 93 H 05/15/22 20:31 127/80 10/04/22 20:16 99 H 05/15/22 20:16 131/82 05/15/22 20:00 18 05/15/22 20:00 18 05/15/22 20:03 84 05/15/22 20:03 134/89 05/15/22 19:46 90 05/15/22 19:46 133/83 05/15/22 19:30 18 05/15/22 19:30 18 05/15/22 19:05 18 05/15/22 19:05 97.9 F 18 05/15/22 19:31 88 05/15/22 19:31 134/79 05/15/22 19:17 88 05/15/22 19:17 143/97 H 05/15/22 19:02 85 05/15/22 19:02 140/92 05/15/22 18:47 89 05/15/22 18:47 134/90 05/15/22 16:14 20 05/15/22 16:14 20 05/15/22 18:32 90 05/15/22 18:32 139/96 05/15/22 17:47 20 05/15/22 17:47 97.7 F 20 05/15/22 18:16 83 05/15/22 18:16 137/94 05/15/22 17:47 94 H 05/15/22 17:47 164/95 H 05/15/22 17:31 98 H 05/15/22 17:31 136/90 05/15/22 17:16 83 05/15/22 17:16 128/85 05/15/22 17:01 85 05/15/22 17:01 133/83 05/15/22 16:47 100 H 05/15/22 16:47 130/77 05/15/22 16:31 94 H 05/15/22 16:31 133/85 05/15/22 16:13 100 H 05/15/22 16:13 132/84 05/15/22 16:16 98.8 F 20 05/15/22 14:08 103 H 128/84 05/15/22 12:16 93 H 129/82 Coding Level of Care Code None Diagnoses Pre-eclampsia, severe O14.10
[2022-05-16] MEDS: LACTATED RINGER'S 1,000 ML IV PRN ×3 (00:33→23:38)
--- NOTE | 2022-05-16 02:12 | Labor Progress Brief Note ---
Date of Service May 16, 2022 Subjective comfortable w/ epidural Assessment & Plan (1) Pre-eclampsia, severe: Plan: 26 yo at 37 3/7 wga presents now w/ pre-eclampsia w/ SF VSS Fetus cat 1 PET w/ SF - Doing ok on mag, Bps wnl, good uop Labor - pit at 16, now s/p arom. Continue induction GBS neg epidural in place Admission and Anticipated Discharge Date Admission Date: May 15, 2022 Physical Exam Genitourinary: Manual OB Exam: + cervical dilation (4-5), + cervical effacement 50%, + station -2 and + amniotic fluid (arom clear) OB Exam Monitor Tracing: + external FHT monitor used, + external uterine monitor used (q3) and + category I (115/mod/+accel/-decel) Results & Data ([facility]) Vital Signs (Past 12 Hours) Vital Signs Temp Pulse Resp BP Pulse Ox O2 Del Method 05/16/22 01:30 18 05/16/22 00:34 18 05/16/22 00:02 18 05/15/22 23:30 18 05/15/22 22:15 18 05/15/22 21:03 18 05/15/22 20:06 18 05/15/22 19:05 97.9 F 18 05/15/22 19:05 18 05/15/22 19:05 Room Air 05/15/22 16:36 20 05/16/22 02:06 93 H 96 05/16/22 02:00 18 05/16/22 02:00 18 05/16/22 02:01 96 H 97 05/16/22 01:58 99 H 142/89 H 05/16/22 01:56 126 H 98 05/16/22 01:51 99 H 98 05/16/22 01:46 98 H 97 05/16/22 01:43 101 H 130/75 05/16/22 01:41 102 H 97 05/16/22 01:29 18 05/16/22 01:29 18 05/16/22 01:36 105 H 98 05/16/22 01:30 18 05/16/22 01:30 98.4 F 18 05/16/22 01:31 116 H 98 05/16/22 01:28 101 H 122/73 05/16/22 01:26 100 H 98 05/16/22 01:21 102 H 98 05/16/22 01:16 100 H 97 05/16/22 01:13 104 H 125/74 05/16/22 01:11 108 H 98 05/16/22 01:06 97 H 96 05/16/22 01:00 18 05/16/22 01:00 18 05/16/22 01:01 99 H 96 05/16/22 00:56 99 H 96 05/16/22 00:57 108 H 103/64 05/16/22 00:51 101 H 96 05/16/22 00:46 101 H 96 05/16/22 00:44 99 H 114/71 05/16/22 00:41 99 H 96 05/16/22 00:30 18 05/16/22 00:30 18 05/16/22 00:36 100 H 97 05/16/22 00:31 104 H 98 05/16/22 00:26 93 H 97 05/16/22 00:27 97 H 114/67 05/16/22 00:21 93 H 98 05/16/22 00:16 95 H 99 05/16/22 00:12 93 H 124/70 05/16/22 00:11 96 H 98 05/16/22 00:06 92 H 98 05/16/22 00:00 18 05/16/22 00:00 18 05/16/22 00:01 93 H 98 05/15/22 23:57 90 05/15/22 23:57 116/68 05/15/22 23:30 18 05/15/22 23:30 18 05/15/22 23:56 98 05/15/22 23:56 92 H 05/15/22 23:51 98 05/15/22 23:51 89 05/15/22 23:46 99 05/15/22 23:46 88 05/15/22 23:42 85 05/15/22 23:42 131/85 05/15/22 23:41 98 05/15/22 23:41 85 05/15/22 23:36 97 05/15/22 23:36 85 05/15/22 23:31 97 05/15/22 23:31 85 05/15/22 23:28 81 05/15/22 23:28 131/81 05/15/22 23:26 100 05/15/22 23:26 90 05/15/22 23:21 97 05/15/22 23:21 88 05/15/22 23:16 98 05/15/22 23:16 90 05/15/22 23:12 85 05/15/22 23:12 118/70 05/15/22 23:11 97 05/15/22 23:11 89 05/15/22 23:00 18 05/15/22 23:00 18 05/15/22 23:06 99 05/15/22 23:06 88 05/15/22 23:01 98 05/15/22 23:01 90 05/15/22 22:57 89 05/15/22 22:57 132/78 05/15/22 22:56 98 05/15/22 22:56 92 H 05/15/22 22:51 96 05/15/22 22:51 90 05/15/22 22:46 97 05/15/22 22:46 90 05/15/22 22:42 91 H 05/15/22 22:42 128/66 05/15/22 22:41 97 05/15/22 22:41 98 H 05/15/22 22:30 18 05/15/22 22:30 18 05/15/22 22:11 18 05/15/22 22:11 18 05/15/22 22:36 98 05/15/22 22:36 96 H 05/15/22 21:30 18 05/15/22 21:30 18 05/15/22 22:30 18 05/15/22 22:30 97.9 F 18 05/15/22 22:31 97 05/15/22 22:31 99 H 05/15/22 22:26 98 05/15/22 22:26 109 H 05/15/22 22:26 151/67 H 05/15/22 22:24 120 H 05/15/22 22:24 163/94 H 05/15/22 22:21 98 05/15/22 22:21 123 H 05/15/22 22:18 125 H 05/15/22 22:18 131/84 05/15/22 22:16 97 05/15/22 22:16 104 H 05/15/22 22:16 101 H 05/15/22 22:16 132/68 05/15/22 22:14 107 H 05/15/22 22:14 129/74 05/15/22 22:11 98 05/15/22 22:11 111 H 05/15/22 22:12 107 H 05/15/22 22:12 135/77 05/15/22 22:10 112 H 05/15/22 22:10 134/78 05/15/22 22:08 116 H 05/15/22 22:08 131/80 05/15/22 22:06 97 05/15/22 22:06 115 H 05/15/22 22:06 110 H 05/15/22 22:06 128/71 05/15/22 22:04 110 H 05/15/22 22:04 127/74 05/15/22 22:01 98 05/15/22 22:01 105 H 05/15/22 22:02 107 H 05/15/22 22:02 135/70 05/15/22 22:00 105 H 05/15/22 22:00 129/67 05/15/22 21:58 109 H 05/15/22 21:58 122/67 05/15/22 21:56 97 05/15/22 21:56 110 H 05/15/22 21:56 113 H 05/15/22 21:56 117/72 05/15/22 21:54 107 H 05/15/22 21:54 119/73 05/15/22 21:52 113 H 05/15/22 21:52 125/77 05/15/22 21:51 98 05/15/22 21:51 112 H 05/15/22 21:50 123 H 05/15/22 21:50 148/98 H 05/15/22 21:48 122 H 05/15/22 21:48 145/98 H 05/15/22 21:46 98 05/15/22 21:46 130 H 05/15/22 21:41 100 05/15/22 21:41 113 H 05/15/22 21:36 98 05/15/22 21:36 90 05/15/22 21:31 99 05/15/22 21:31 89 05/15/22 21:31 96 H 05/15/22 21:31 146/93 H 05/15/22 21:16 93 H 05/15/22 21:16 137/92 05/15/22 21:00 18 05/15/22 21:00 18 05/15/22 21:01 103 H 05/15/22 21:01 139/91 05/15/22 20:46 93 H 05/15/22 20:46 137/95 05/15/22 20:30 18 05/15/22 20:30 18 05/15/22 20:31 93 H 05/15/22 20:31 127/80 05/15/22 20:16 99 H 05/15/22 20:16 131/82 05/15/22 20:00 18 05/15/22 20:00 18 05/15/22 20:03 84 05/15/22 20:03 134/89 05/15/22 19:46 90 05/15/22 19:46 133/83 05/15/22 19:30 18 05/15/22 19:30 18 05/15/22 19:05 18 05/15/22 19:05 97.9 F 18 05/15/22 19:31 88 05/15/22 19:31 134/79 05/15/22 19:17 88 05/15/22 19:17 143/97 H 05/15/22 19:02 85 05/15/22 19:02 140/92 05/15/22 18:47 89 05/15/22 18:47 134/90 05/15/22 16:14 20 05/15/22 16:14 20 05/15/22 18:32 90 05/15/22 18:32 139/96 05/15/22 17:47 20 05/15/22 17:47 97.7 F 20 05/15/22 18:16 83 05/15/22 18:16 137/94 05/15/22 17:47 94 H 05/15/22 17:47 164/95 H 05/15/22 17:31 98 H 05/15/22 17:31 136/90 05/15/22 17:16 83 05/15/22 17:16 128/85 05/15/22 17:01 85 05/15/22 17:01 133/83 05/15/22 16:47 100 H 05/15/22 16:47 130/77 10/04/22 16:31 94 H 05/15/22 16:31 133/85 05/15/22 16:13 100 H 05/15/22 16:13 132/84 05/15/22 16:16 98.8 F 20 Coding Level of Care Code None Diagnoses Pre-eclampsia, severe O14.10
[2022-05-16] MEDS ORDERED: NURSING L&D Epidural Breakthrough Pain Update ONE (03:23)
[2022-05-16] MEDS ORDERED: ROPIVACAINE 0.5% 5 MG/ML 30 ML VIAL ONE (04:07)
[2022-05-16] MEDS ORDERED: LIDOCAINE 2%/EPINEPHRINE 1:200,000 20 ML SDV ONE (04:07)
--- NOTE | 2022-05-16 04:32 | Communication Note ---
Date of Service: May 16, 2022 called by nursing as pt painful on right lower abdomen. bolused a total of 4ml 2% lido with epi mixed with 2ml of 0.5% ropivicaine. bp measured q2 min. pain much improved. pt states she feels much better.n
[2022-05-16] MEDS: ePHEDrine sulfate 50 MG/ML AMP IV PRN ×2 (04:39→04:44)
--- NOTE | 2022-05-16 05:08 | Communication Note ---
Date of Service: May 16, 2022 pt with increased pain. bolused 100mcg fentanyl via epidural along with 4ml of 2% lidocaine. pt on monitor with bp q2 min.
[2022-05-16] MEDS ORDERED: BENZOCAINE 20% AER SPR 82.5 GM CAN EXT PRN (08:01)
[2022-05-16] MEDS ORDERED: bisacodyL 10 MG SUPP PR PRN (08:01)
[2022-05-16] MEDS ORDERED: HYDROCORTISONE ACETATE 25 MG SUPP PR PRN (08:01)
[2022-05-16] MEDS ORDERED: OXYTOCIN 30 UNITS/500 ML BAG IV PRN (08:01)
[2022-05-16] MEDS ORDERED: ACETAMINOPHEN 325 MG TAB PO PRN (08:01)
[2022-05-16] MEDS ORDERED: DIPHTHERIA/TETANUS/PERTUSSIS 0.5 ML SYR/VIAL IM ONE (08:01)
--- NOTE | 2022-05-16 08:09 | Delivery Summary ---
Vaginal Delivery Summary Date of Service May 16, 2022 Vaginal Delivery Summary [facility] PREOPERATIVE DIAGNOSIS: 1. Single intrauterine at 37 4/7 weeks gestation 2. Pre-eclampsia w/ severe features 3. congenital absence of left kidney POSTOPERATIVE DIAGNOSIS: 1. Single intrauterine at 37 4/7 weeks gestation 2. Pre-eclampsia w/ severe features 3. congenital absence of left kidney 4. Delivered PROCEDURE: 1. Normal spontaneous vaginal delivery. SURGEON: Kimberly Hutchison MD ANESTHESIA: Epidural. ESTIMATED BLOOD LOSS: 300 mL FLUIDS: Continuous LR. URINE OUTPUT: None. COMPLICATIONS: None. CONDITION: Stable. INDICATIONS: 26 yo at 37 4/7 wga presented to florencio visit yesterday for gHTN. During this time noted that her headache was worse and no longer improved by medication. Labs were obtained and wnl however given change in her HAs in the setting of gHTN, was recommended for delivery due to meeting criteria for pre-eclampsia. Induction was begun with hi bulb and pitocin. Following hi bulb expulsion, pitocin was titrated up. Epidural was given for pain control and she underwent arom. She progressed to complete and desired to push FINDINGS: A viable male infant, weight pending with Apgars of 7 and 10 at 1 and 5 minutes respectively. SPECIMEN: Cord blood OPERATIVE REPORT: The patient progressed to 10 cm, 100% effaced and +2 station, pushed over intact perineum with anesthesia to deliver a viable male infant, we ight and Apgars as above. Head of delivered in AIRAM position with compound hand. No nuchal cord was present. Body and shoulders were delivered without difficulty. was delivered to maternal abdomen and nursing staff. Delayed cord clamping was performed for 60 seconds. Cord was clamped and cut. Cord blood was obtained. Placenta delivered spontaneously intact with 3-vessel cord. IV oxytocin and fundal massage were given for excellent hemostasis. Vagina, cervix, perineum, and placenta were inspected. No lacerations were noted. Sponge and needle counts correct x2. No sponges were left behind. Mother and stable in immediate period. [facility] Vaginal Delivery Charge Vaginal Delivery Codes: 79417 global code for the antepartum, delivery, and post- Delivery Type Details: [facility]
--- NOTE | 2022-05-16 08:10 | Anesthesia Procedure Note ---
Date of Service May 16, 2022 Anesthesia Post Epidural Note Vital Signs Vital Signs: Temp Pulse Resp BP Pulse Ox O2 Del Method 37.1 C 103 H 18 125/87 98 05/16/22 07:07 05/16/22 08:06 05/16/22 07:07 05/16/22 08:04 05/16/22 08:06 05/15/22 19:05 Pain Intensity Bilateral Abdomen: Pain Intensity: 2 Notes Mental Status: alert / awake / arousable and participated in evaluation Nausea / Vomiting: adequately controlled Pain: adequately controlled Airway Patency, RR, SpO2: stable & adequate BP & HR: stable & adequate Hydration State: stable & adequate Neuraxial Anesthesia: was administered and sensory block is resolving Anesthetic Complications: no major complications apparent and Pt Satisfied with anesthetic care Epidural: Removed without complications and With tip intact
[2022-05-16] MEDS: MAGNESIUM SULFATE / WTR 40 GM/1,000 ML BAG IV SCH (09:10)
[2022-05-16] MEDS: IBUPROFEN 600 MG TAB PO PRN (10:15)
[2022-05-16 14:54] LABS: Hematocrit (blood only) 33.4 % (34.1-44.9); Hemoglobin 11.2 g/dl (12.0-16.0); Mean Corpuscular Hemoglobin 29.3 pg (25.0-34.0); Mean Corpuscular Hgb Conc 33.5 g/dL (32.0-36.0); Mean Corpuscular Volume 87.4 fL (80.0-100.0); Mean Platelet Volume 10.3 fL (9.4-12.3); Platelet Count 264 K/uL (130-400); RDW Coefficient of Variation 13.2 % (11.5-14.5); RDW Standard Deviation 41.3 fL (36.4-46.3); Red Blood Count 3.82 M/uL (3.93-5.22); White Blood Count 14.53 K/ul (4.8-10.8)
[2022-05-16 15:27] LABS: Alanine Aminotransferase 7 U/L (7-52); Albumin Globulin Ratio 1.3 (0.9-2); Albumin Level 2.8 gm/dl (3.4-5.0); Alkaline Phosphatase 165 U/L (34-104); Anion Gap 9 (3-11); Aspartate Aminotransferase 10 U/L (13-39); BUN Creatinine Ratio 17.8 (10-20); Bilirubin,Total 0.2 mg/dl (0.2-1.0); Blood Urea Nitrogen 8 mg/dl (6-23); Calcium 7.6 mg/dl (8.5-10.1); Carbon Dioxide 20 mmol/L (21-32); Chloride 104 mmol/L (98-107); Creatinine Clr Calc Pharmacy 208.4 ml/min; Est GFR (African American) > 150.0 ml/min; Est GFR (Non-African American) 136.4 ml/min; Globulin 2.1 gm/dl (2.5-4.0); Glucose 159 mg/dl (70-99(Fasting)); Potassium 3.6 mmol/L (3.5-5.1); Sodium 133 mmol/L (136-145); Total Protein 4.9 gm/dl (6.0-8.3)
[2022-05-16] MEDS: DOCUSATE SODIUM 100 MG CAP PO SCH (21:31)
[2022-05-17] MEDS: MAGNESIUM SULFATE / WTR 40 GM/1,000 ML BAG IV SCH (02:51)
[2022-05-17 06:17] LABS: Hematocrit (blood only) 28.8 % (34.1-44.9); Hemoglobin 9.7 g/dl (12.0-16.0); Mean Corpuscular Hemoglobin 29.8 pg (25.0-34.0); Mean Corpuscular Hgb Conc 33.7 g/dL (32.0-36.0); Mean Corpuscular Volume 88.3 fL (80.0-100.0); Mean Platelet Volume 9.8 fL (9.4-12.3); Platelet Count 231 K/uL (130-400); RDW Coefficient of Variation 13.8 % (11.5-14.5); RDW Standard Deviation 43.8 fL (36.4-46.3); Red Blood Count 3.26 M/uL (3.93-5.22); White Blood Count 8.81 K/ul (4.8-10.8)
--- NOTE | 2022-05-17 06:51 | Obstetrical Progress Note ---
Date of Service May 17, 2022 Assessment & Plan (1) Pre-eclampsia, severe: (2) examination following vaginal delivery: Plan now s/p 23hr of magnesium. bps good. no significant sx. good urine output. ok to stop now. labs from yest noted. dc ih. routine pp care. rh pos, ri, breast/bottle, move to floor bed Subjective Ambulation: limited ambulation Voiding: hi catheter in place Passing Gas:: Yes Diet Tolerance:: regular diet Lochia:: Moderate Feeding Type:: breast feeding (and bottle feeding) denies pain issues. has intermittent dull headache, helped by motrin. not current Constitutional: + as per Subjective / HPI Physical Exam Constitutional WD/WN, vitals as above Respiratory normal respiratory effort, lungs clear to auscultation Cardiovascular Rate/Rhythm: regular rate and regular rhythm Gastrointestinal (Abdomen) Inspection/Auscultation: abdomen normal to inspection Percussion/Palpation: abdomen soft Fundus firm 1cm down no ruq or epig tenderness Musculoskeletal nt calves no edema Neurologic DTRs +2 patellar, no clonus Psychiatric A+Ox3, euthymic affect Results & Data ([place]) Vital Signs (Past 12 Hours) Vital Signs Temp Pulse Resp BP Pulse Ox O2 Del Method 05/17/22 06:00 18 05/17/22 04:45 18 05/17/22 02:30 16 05/17/22 03:30 97.5 F L 18 05/17/22 03:30 18 05/17/22 01:40 16 05/17/22 00:35 16 05/16/22 23:35 98.2 F 16 05/16/22 23:35 16 05/16/22 22:30 16 05/16/22 21:30 18 05/16/22 20:30 18 05/16/22 19:35 98.4 F 18 05/16/22 19:35 18 05/16/22 19:35 Room Air 05/17/22 06:45 103 H 98 05/17/22 06:40 92 H 95 05/17/22 06:35 96 H 96 05/17/22 06:30 91 H 101/59 L 95 05/17/22 06:25 91 H 95 05/17/22 06:20 86 95 05/17/22 06:15 88 96 05/17/22 06:10 84 95 05/17/22 06:05 97 H 96 05/17/22 06:00 99 H 95 05/17/22 05:55 89 93 05/17/22 05:50 89 94 05/17/22 05:45 86 95 05/17/22 05:40 88 95 05/17/22 05:35 86 95 05/17/22 05:30 89 105/57 L 95 05/17/22 05:25 97 H 97 05/17/22 05:20 99 H 96 05/17/22 05:15 92 H 95 05/17/22 05:10 95 H 95 05/17/22 05:05 96 H 97 05/17/22 05:00 94 H 96 05/17/22 04:55 99 H 97 05/17/22 04:50 97 H 97 05/17/22 04:45 89 95 05/17/22 04:40 91 H 96 05/17/22 04:35 88 96 05/17/22 04:30 94 H 118/68 94 05/17/22 04:28 95 H 88 L 05/17/22 04:25 92 H 94 05/17/22 04:20 102 H 96 05/17/22 04:15 95 H 95 05/17/22 04:10 119 H 95 05/17/22 04:05 102 H 94 05/17/22 04:00 104 H 96 05/17/22 03:55 100 H 95 05/17/22 03:50 97 H 96 05/17/22 03:49 98 H 87 L 05/17/22 03:45 95 H 98 05/17/22 03:40 94 H 97 05/17/22 03:35 92 H 97 05/17/22 03:30 86 109/63 98 05/17/22 03:25 102 H 95 05/17/22 03:20 93 H 96 05/17/22 03:15 94 H 97 05/17/22 03:10 91 H 98 05/17/22 03:05 96 H 95 05/17/22 03:00 93 H 98 05/17/22 02:55 98 H 97 05/17/22 02:50 96 H 98 05/17/22 02:45 102 H 97 05/17/22 02:40 93 H 96 05/17/22 02:35 82 94 05/17/22 02:30 90 98/55 L 96 05/17/22 02:25 84 96 05/17/22 02:20 89 96 05/17/22 02:15 88 94 05/17/22 02:10 85 96 05/17/22 02:05 87 94 05/17/22 02:00 95 H 93 05/17/22 01:55 93 H 94 05/17/22 01:50 92 H 95 05/17/22 01:45 110 H 94 05/17/22 01:40 111 H 96 05/17/22 01:35 98 H 96 05/17/22 01:30 96 05/17/22 01:30 96 H 05/17/22 01:30 94 H 98/53 L 05/17/22 01:25 97 H 95 05/17/22 01:20 96 H 95 05/17/22 01:15 96 H 95 05/17/22 01:10 95 H 95 05/17/22 01:05 105 H 95 05/17/22 01:00 98 H 96 05/17/22 00:55 95 H 95 05/17/22 00:50 98 H 96 05/17/22 00:45 99 H 96 05/17/22 00:40 95 H 96 05/17/22 00:35 99 H 97 05/17/22 00:30 97 05/17/22 00:30 90 05/17/22 00:30 93 H 91/55 L 05/17/22 00:25 99 H 98 05/17/22 00:20 102 H 98 05/17/22 00:15 102 H 96 05/17/22 00:10 99 H 97 05/17/22 00:05 92 H 96 05/17/22 00:00 97 H 97 05/16/22 23:55 99 H 95 05/16/22 23:50 102 H 95 05/16/22 23:45 103 H 95 05/16/22 23:40 103 H 96 05/16/22 23:35 95 H 97 05/16/22 23:30 93 H 105/60 95 05/16/22 23:25 93 H 95 05/16/22 23:20 110 H 96 05/16/22 23:15 97 H 95 05/16/22 23:10 93 H 94 05/16/22 23:05 93 H 94 05/16/22 23:00 92 H 94 05/16/22 22:55 107 H 96 05/16/22 22:50 97 H 96 05/16/22 22:45 98 H 96 05/16/22 22:40 105 H 95 05/16/22 22:35 95 H 95 05/16/22 22:30 94 H 103/63 97 05/16/22 22:25 96 H 95 05/16/22 22:20 104 H 96 05/16/22 22:15 116 H 97 05/16/22 22:10 108 H 95 05/16/22 22:05 105 H 96 05/16/22 22:00 114 H 94 05/16/22 21:55 110 H 97 05/16/22 21:50 107 H 97 05/16/22 21:45 107 H 96 05/16/22 21:40 105 H 98 05/16/22 21:35 102 H 96 05/16/22 21:30 106 H 122/71 96 05/16/22 21:25 112 H 96 05/16/22 21:20 107 H 96 05/16/22 21:15 114 H 96 05/16/22 21:10 166 H 97 05/16/22 21:05 155 H 96 05/16/22 21:00 112 H 96 05/16/22 20:55 111 H 97 05/16/22 20:50 115 H 97 05/16/22 20:45 104 H 97 05/16/22 20:40 113 H 133/74 97 05/16/22 20:35 106 H 97 05/16/22 20:30 115 H 139/105 H 97 05/16/22 20:25 109 H 98 05/16/22 20:20 109 H 99 05/16/22 20:14 107 H 97 05/16/22 20:09 96 05/16/22 20:09 104 H 05/16/22 20:09 110 H 88 L 05/16/22 20:04 108 H 97 05/16/22 19:59 102 H 97 05/16/22 19:54 101 H 98 05/16/22 19:49 97 H 97 05/16/22 19:42 107 H 99 05/16/22 19:37 101 H 96 05/16/22 19:32 102 H 98 05/16/22 19:30 100 H 117/66 05/16/22 19:27 104 H 96 05/16/22 19:22 102 H 96 05/16/22 19:17 103 H 97 05/16/22 19:12 114 H 97 05/16/22 19:07 105 H 97 05/16/22 19:02 116 H 97 05/16/22 18:57 114 H 95 05/16/22 18:52 113 H 97
[2022-05-17] MEDS: IBUPROFEN 600 MG TAB PO PRN ×2 (08:19→21:43)
[2022-05-17] MEDS: DOCUSATE SODIUM 100 MG CAP PO SCH ×2 (08:19→21:15)
[2022-05-17] MEDS: PRENATAL VITAMIN 1 TAB PO SCH (08:19)
[2022-05-17] MEDS ORDERED: bisacodyL 5 MG TABEC PO SCH (20:00)
--- NOTE | 2022-05-18 06:20 | Obstetrical Progress Note ---
Date of Service <Jessica GoldDO silvestre - Last Filed: 05/18/22 07:01> May 18, 2022 Assessment & Plan <Jessica GoldamadorphoenixDO - Last Filed: 05/18/22 07:01> (1) examination following vaginal delivery: Patient is PPD 2 s/p and doing well. - Eating well, voiding well, ambulating well - Vitals reviewed and within normal limits - Pain well controlled with analgesics - OOB, ambulation, diet progression as tolerated - Blood type: A+, GBS neg, rubella non immune - Plan to discharge today - After discharge, 6 week follow up with Dr. Hutchison <Gabriele Nesbitt MD - Last Filed: 05/18/22 07:34> (1) examination following vaginal delivery: Subjective <Jessica GoldamadorphoenixDO - Last Filed: 05/18/22 07:01> Patient is a 26 yo female who is now PPD #2 following spontaneous vaginal delivery at 37+4 weeks. Reports feeling well this morning. She denies abdominal cramping and 0/10 pain well managed on analgesics. Voiding without issue. Tolerating regular meals overnight and able to ambulate some. She has passed gas but no bowel movements. Persistent lochia with some improvement this morning. Currently breast and bottle feeding. Review of Systems Denies fever, chills, sweats. Denies SOB, difficulty breathing, chest pain, palpitations, and chest pressure. Denies breast pain. Denies dysuria. Denies headache or changes in vision. Physical Exam <Jessica SrAyana AsifDO silvestre - Last Filed: 05/18/22 07:01> General: Alert and oriented. No acute distress. CV: Regular rate and rhythm. No murmurs. Respiratory: CTA bilaterally. No rhonchi, wheezes, or crackles. No increased work of breathing. Abdomen: Positive bowel sounds. Soft, nontender, non distended. Uterus: Fundus firm and palpable 2 cm below the umbilicus. Lower extremities: No LE edema. No deep calf pain. Rogerio's negative bilaterally. Results & Data ([facility]) <Jessica SrAyana Noble DO - Last Filed: 05/18/22 07:01> Vital Signs (Past 12 Hours) Vital Signs Temp Pulse Resp BP Pulse Ox O2 Del Method 05/18/22 05:00 84 16 117/79 99 Room Air 05/18/22 01:00 36.6 C 82 18 119/81 98 Room Air 05/17/22 21:15 36.6 C 99 H 20 146/93 H 99 Room Air <Gabriele Nesbitt MD - Last Filed: 05/18/22 07:34> Co-Signing Physician Notes Patient seen and evaluated and agree with the above findings and plan. Stable fo r discharge. Reviewed PIH precautions. Will plan for 1 week BP check Resident Activity Tracking <Jessica Noble DO - Last Filed: 05/18/22 07:01> Resident Involvement: Resident Care Provided Care Provided: OB Delivery
[2022-05-18 06:58] LABS: Hematocrit (blood only) 31.3 % (34.1-44.9); Hemoglobin 10.4 g/dl (12.0-16.0)
[2022-05-18] MEDS: DOCUSATE SODIUM 100 MG CAP PO SCH (08:11)
[2022-05-18] MEDS: PRENATAL VITAMIN 1 TAB PO SCH (08:11)
[2022-05-18] MEDS: IBUPROFEN 600 MG TAB PO PRN (10:40)
[2022-05-18] MEDS ORDERED: MEASLES, MUMPS & RUBELLA VIRUS VIAL SQ ONE (10:49)
== END 2022-05-18 12:25 | disposition home or self-care (01) | DRG 807 ==
LOC: OPB 10:32 → 4S1 10:47 → 4E1 05-17 09:27 → 4E2 05-17 20:01

== ENCOUNTER 2022-05-23 14:08 | Observation (INO) ==
[2022-05-23] MEDS ORDERED: SODIUM CHLORIDE 0.9% 500 ML IV ONE (14:38)
--- NOTE | 2022-05-23 14:40 | Emergency Department Note ---
Impression & Plan Pre-eclampsia, Hypertension ED Provider Note NAME: FORREST HOFFMANN AGE: 26 SEX: F : 1995 ARRIVES VIA: Walk-In INFORMANT: Patient ED PROVIDER(S): Tom Bose DO CHIEF COMPLAINT: ALANIZ HPI: Patient is a 26-year-old female G3, P3 who had her child 1 week ago at 37 and 3 that presents to the ER referred in by FOOT CUTTER. She was at their office and referred in for elevated blood pressures in the 160s. She admits to a throbbing headache. When she gets up and moves around she feels worse that she has exertional chest pain and shortness of breath but a chronic persistent chest pain over the past 2 days. No arm or jaw pain. She has been passing increased clots over the past 2 days. Denies any dysuria, urgency, or frequency. No other exacerbating or remitting factors. She has had preeclampsia with her 2 previous pregnancies as well as this 1 but is generally went away after delivery. ROS: See above HPI for pertinent positives & negatives. A total of 10 systems reviewed and were otherwise negative. PAST MEDICAL HISTORY:See Below PAST SURGICAL HISTORY:See Below FAMILY HISTORY:See Below SOCIAL HISTORY:See Below HOME MEDICATIONS:See Below ALLERGIES:See Below VITALS:See Below PHYSICAL EXAMINATION: GENERAL: Sitting up in bed, alert, well appearing, well nourished, no distress, non-toxic EYE EXAM: normal conjunctiva. OROPHARYNX: no exudate, no erythema, lips, buccal mucosa, and tongue normal and mucous membranes are moist NECK: supple, no nuchal rigidity, no adenopathy, non-tender LUNGS: Clear to auscultation. Normal chest wall mechanics HEART: no murmurs, S1 normal and S2 normal ABDOMEN: abdomen soft, non-tender, normo-active bowel sounds, no masses, no rebound or guarding. UPPER EXTREMITIES: upper extremities are grossly normal. LOWER EXTREMITIES: No pitting edema. Calves are equal bilateral NEURO EXAM: Normal sensorium, cranial nerves II-XII grossly intact, normal speech, no gross weakness of arms, no gross weakness of legs. No drift. Finger to nose intact. Gross sensation intact. MEDICAL DECISION MAKING: Patient is a 26-year-old female who presents ER for above-stated complaint. IV was established blood was obtained. Labs show no significant leukocytosis or anemia. BMP along with LFTs bilirubin and lipase unremarkable. Troponin was negative. COVID was unremarkable. EKG showed poor R wave progression which I favor is lead placement as she has had chest pain for the past 2 days constantly with negative troponin. EKG was repeated and unremarkable. Case was discussed with FOOT CUTTER. CT head was negative. Pressure trended down on her own patient does have several elevated pressures as an outpatient and upon arrival. Patient will be admitted to Dr. Montanez for preeclampsia with the headache and elevated blood pressures [address] angio of the chest was performed and u nremarkable. She was given IV fluids while in the ER. Triage Nursing notes reviewed. Limited review of prior medical records performed Vital Signs: reviewed and remarkable for HTN Differential diagnosis: Differential Diagnosis includes but is not limited to headache, tension headache, cluster headache, migraine, subarachnoid hemorrhage, meningitis, mass, central venous thrombus, concussion, trauma and epidural/subdural hemorrhage. ER treatment provided: See below Diagnostics interpreted by me: ECG: Sinus rhythm rate 85 Normal axis T wave version lead III QTC 428 Poor R wave progression. EKG #2 Sinus rhythm rate 78 Normal axis T wave inversion lead III QTC 426 Cardiac Monitoring: An order was placed for continuous cardiac monitoring. The monitor shows a rate of 80 with sinus rhythm. Laboratory studies: As stated above and show below. Imaging studies: CT head was negative CTA of chest was neg. 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 Normal paps since Pre-eclampsia with last 2 pregnancies Surgical History History of adenoidectomy S/P cholecystectomy S/P tonsillectomy [place] teeth extracted Family History Grandmother (Maternal) Diabetes Hypertension Grandfather (Maternal) Diabetes Hypertension Grandmother (Paternal) Diabetes Hypertension Grandfather (Paternal) Diabetes Hypertension Sister Hemophilia Brother Asthma Mother Hypertension Denies family history of Ovarian cancer Prostate cancer Breast cancer Lung cancer Social History Smoking Status: Never smoker Second Hand Exposure: No; Hx Alcohol Use: No Hx Substance Use: No Preferred Language: [place] Island[place] Communication Ability: Effective Mainframe Systems Administrator Required: No Beliefs That Will Affect Care: None marital status: Single marital status details: GERRY Roberts (30) [phone] Current Living Situation: Significant Other Current Living Situation Comment: FOB and children +1 dog current occupational status: employed current occupation: [employer] Feels Safe at Home: Yes Assistive Devices: None Allergies Allergies Allergy/AdvReac Type Severity Reaction Status Date / Time oxycodone Allergy Severe rash and Verified 05/23/22 13:40 hives Home Meds Home Medications Medication Instructions Recorded Confirmed [id number] 1 mg 1 tab PO DAILY 12/07/21 05/23/22 tablet Results & Data (ED) Vital Signs Vital Signs - 24 hr 05/23/22 14:13 05/23/22 15:08 05/23/22 15:08 Temperature 36.8 C Temperature Source Temporal Artery Scan Pulse Rate 92 H 84 Pulse Rate [Finger] 80 Pulse Rhythm [Finger] Regular Respiratory Rate 18 18 Blood Pressure 155/106 H Blood Pressure [Left Arm] 124/90 Blood Pressure Mean 122 Blood Pressure Mean [Left Arm] 101 Pulse Oximetry 98 100 99 Oxygen Delivery Method Room Air Room Air Sepsis Recent Fever Within 48 Hours No Sepsis New/Unexplained Change in Mental Status No Sepsis Action Taken by Nursing No Action Required 05/23/22 16:08 05/23/22 16:51 Temperature Temperature Source Pulse Rate Pulse Rate [Finger] 75 77 Pulse Rhythm [Finger] Respiratory Rate 18 18 Blood Pressure Blood Pressure [Left Arm] 120/90 128/92 Blood Pressure Mean Blood Pressure Mean [Left Arm] 100 104 Pulse Oximetry 99 99 Oxygen Delivery Method Sepsis Recent Fever Within 48 Hours Sepsis New/Unexplained Change in Mental Status Sepsis Action Taken by Nursing Laboratory Data Result diagrams: 05/23/22 15:22 05/23/22 15:22 Lab Results 05/23/22 05/23/22 05/23/22 Range/Units 15:22 15:22 17:11 WBC 7.06 (4.8-10.8) K/ul RBC 4.42 (3.93-5.22) M/uL Hgb 13.1 (12.0-16.0) g/dl Hct 39.3 (34.1-44.9) % MCV 88.9 (80.0-100.0) fL MCH 29.6 (25.0-34.0) pg MCHC 33.3 (32.0-36.0) g/dL RDW Std Deviation 43.1 (36.4-46.3) fL RDW Coeff of Yonatan 13.2 (11.5-14.5) % Plt Count 374 (130-400) K/uL MPV 9.2 L (9.4-12.3) fL Immature Gran % (Auto) 0.6 % Neut % (Auto) 67.8 % Lymph % (Auto) 25.1 % Kinney % (Auto) 5.1 % Eos % (Auto) 1.0 % Baso % (Auto) 0.4 % Neut # (Auto) 4.79 (1.4-6.5) K/uL Lymph # (Auto) 1.77 (1.2-3.4) K/uL Kinney # (Auto) 0.36 (0.24-0.82) K/uL Eos # (Auto) 0.07 (0-0.50) K/uL Baso # (Auto) 0.03 (0-0.2) K/uL Immature Gran # (Auto) 0.04 H (0.00-0.02) K/uL Sodium 138 (136-145) mmol/L Potassium 3.9 (3.5-5.1) mmol/L Chloride 106 (98-107) mmol/L Carbon Dioxide 23 (21-32) mmol/L Anion Gap 9 (3-11) BUN 11 (6-23) mg/dl Creatinine 0.52 L (0.6-1.2) mg/dl Est Cr Clr Drug Dosing 172.9 ml/min Est GFR ( Amer) > 150.0 ml/min Est GFR (Non-Af Amer) 130.0 ml/min BUN/Creatinine Ratio 21.2 H (10-20) Glucose 95 (70-99(Fasting)) mg/dl Calcium 9.2 (8.5-10.1) mg/dl Magnesium 1.9 (1.7-2.4) mg/dl Total Bilirubin 0.3 (0.2-1.0) mg/dl AST 13 (13-39) U/L ALT 15 (7-52) U/L Alkaline Phosphatase 162 H (34-104) U/L Troponin I High Sens 3.4 (0-14) pg/ml Total Protein 7.0 (6.0-8.3) gm/dl Albumin 3.9 (3.4-5.0) gm/dl Globulin 3.1 (2.5-4.0) gm/dl Albumin/Globulin Ratio 1.3 (0.9-2) Lipase 16 (11-82) U/L SARS-CoV-2, RNA, NAAT NEGATIVE (NEGATIVE) Administered Medications Discontinued Medications Sodium Chloride (Nss) 500 mls @ 999 mls/hr IV .Q31M ONE Stop: 05/23/22 15:08 Last Infusion: 05/23/22 16:05 Dose: 0 mls/hr Documented By: Admin: 05/23/22 15:20 Dose: 999 mls/hr Documented By: WALDO Ioversol (Optiray 300 500ml) 120 ml IV ONCE ONE Stop: 05/23/22 16:19 Last Admin: 05/23/22 16:18 Dose: 120 ml Documented By: YARY Imaging Data Radiologist's Impression: Chest X-Ray 05/23/22 14:38 XR chest 1V portable CLINICAL HISTORY: Shortness of breath. Atypical chest pain. COMPARISON STUDY: No previous studies for comparison. FINDINGS: Lung volumes are normal. Lungs are clear. There is no pneumothorax or pleural effusion. Cardiac size is normal. Mediastinal contours are normal. There is no evidence for pulmonary edema. IMPRESSION: No acute cardiopulmonary findings. ACT 112: Negative or not required by law. Electronically signed by: Leander Garnett M.D. 05/23/2022 3:[address] 05/23/22 14:38 CT head/brain wo con CLINICAL HISTORY: 26 years-old Female with alaniz. Acute headache TECHNIQUE: Multiple axial CT images of the head were obtained without contrast. A dose lowering technique was utilized adhering to the principles of ALARA. COMPARISON: None. FINDINGS: No acute intracranial hemorrhage, midline shift, intracranial mass, hydrocephalus, territorial ischemia or abnormal extra-axial collection. The calvarium is intact. The paranasal sinuses, mastoid air cells, and middle ear cavities are clear. IMPRESSION: No acute intracranial abnormality. ACT 112: Negative or not required by law. The above report was generated using voice recognition software. It may contain grammatical, syntax or spelling errors. Electronically signed by: Gabriele Garcia M.D. 05/23/2022 4:23 PM Chest CTA 05/23/22 14:40 CT angio chest PE protocol CT DOSE: 1386.01 mGy.cm HISTORY: 26 years-old Female with PE. Acute chest pain with shortness of breath TECHNIQUE: Multiple CTA images of the chest were obtained after the intravenous administration of 120 ml Optiray. Coronal and sagittal MIPS were obtained from the axial data set and were submitted for review. All measurements were obtained according to NASCET criteria. A dose lowering technique was utilized adhering to the principles of ALARA. COMPARISON: Chest radiograph of same day FINDINGS: CTA: There is adequate opacification of the pulmonary arteries to the level of the subsegmental branches without convincing evidence of acute pulmonary embolism. Normal thoracic aorta.Heart size is normal. CT CHEST: No thyroid nodule. Residual thymic tissue of the anterior mediastinum. There is no lymphadenopathy. No pneumothorax, pleural effusion, airspace consolidation or overt pulmonary edema. No suspicious pulmonary nodules or masses. The central airways are patent. Mild nonspecific distal esophageal wall thickening. The spleen is enlarged, 14.2 cm. Cholecystectomy. Unremarkable soft tissues. No acute fracture. IMPRESSION: 1. No acute intrathoracic abnormality. No pulmonary emboli. 2. Mild splenomegaly. 3. Cholecystectomy. 4. Mild nonspecific distal esophageal wall thickening. ACT 112: Negative or not required by law. The above report was generated using voice recognition software. It may contain grammatical, syntax or spelling errors. Electronically signed by: Gabriele Garcia M.D. 05/23/2022 4:30 PM Discharge Plan Visit Data Chief Complaint: Illness Stated Complaint: BLOOD PRESSURE ED Provider: Tom Bose Discharge Problem: Pre-eclampsia, Hypertension Forms Stand Alone Forms: [facility] Prescriptions Prescriptions: No Action zecqaggm-zpf-Qc-FA 1 mg Tablet 1 tab PO DAILY Referrals Referrals: Vida Katz PA-C [Primary Care Provider] -
--- NOTE | 2022-05-23 15:18 | XRay Report ---
XR chest 1V portable CLINICAL HISTORY: Shortness of breath. Atypical chest pain. COMPARISON STUDY: No previous studies for comparison. FINDINGS: Lung volumes are normal. Lungs are clear. There is no pneumothorax or pleural effusion. Car diac size is normal. Mediastinal contours are normal. There is no evidence for pulmonary edema. IMPRESSION: No acute cardiopulmonary findings. ACT 112: Negative or not required by law. Electronically signed by: Laender Garnett M.D. 05/23/2022 3:16 PM
[2022-05-23 15:32] LABS: Basophils # (auto) 0.03 K/uL (0-0.2); Basophils % (auto) 0.4 %; Eosinophils # (auto) 0.07 K/uL (0-0.50); Hematocrit (blood only) 39.3 % (34.1-44.9); Hemoglobin 13.1 g/dl (12.0-16.0); Immature Granulocytes # (auto) 0.04 K/uL (0.00-0.02); Immature Granulocytes % (auto) 0.6 %; Lymphocytes # (auto) 1.77 K/uL (1.2-3.4); Lymphocytes % (auto) 25.1 %; Mean Corpuscular Hemoglobin 29.6 pg (25.0-34.0); Mean Corpuscular Hgb Conc 33.3 g/dL (32.0-36.0); Mean Corpuscular Volume 88.9 fL (80.0-100.0); Mean Platelet Volume 9.2 fL (9.4-12.3); Monocytes # (auto) 0.36 K/uL (0.24-0.82); Monocytes % (auto) 5.1 %; Neutrophils # (auto) 4.79 K/uL (1.4-6.5); Neutrophils % (auto) 67.8 %; Platelet Count 374 K/uL (130-400); RDW Coefficient of Variation 13.2 % (11.5-14.5); RDW Standard Deviation 43.1 fL (36.4-46.3); Red Blood Count 4.42 M/uL (3.93-5.22); White Blood Count 7.06 K/ul (4.8-10.8)
[2022-05-23 15:52] LABS: Alanine Aminotransferase 15 U/L (7-52); Albumin Globulin Ratio 1.3 (0.9-2); Albumin Level 3.9 gm/dl (3.4-5.0); Alkaline Phosphatase 162 U/L (34-104); Anion Gap 9 (3-11); Aspartate Aminotransferase 13 U/L (13-39); BUN Creatinine Ratio 21.2 (10-20); Bilirubin,Total 0.3 mg/dl (0.2-1.0); Blood Urea Nitrogen 11 mg/dl (6-23); Calcium 9.2 mg/dl (8.5-10.1); Carbon Dioxide 23 mmol/L (21-32); Chloride 106 mmol/L (98-107); Creatinine Clr Calc Pharmacy 172.9 ml/min; Est GFR (African American) > 150.0 ml/min; Globulin 3.1 gm/dl (2.5-4.0); Glucose 95 mg/dl (70-99(Fasting)); Lipase 16 U/L (11-82); Magnesium 1.9 mg/dl (1.7-2.4); Potassium 3.9 mmol/L (3.5-5.1); Sodium 138 mmol/L (136-145)
[2022-05-23 15:57] LABS: Troponin I High Sensitivity 3.4 pg/ml (0-14)
[2022-05-23] MEDS ORDERED: OPTIRAY 300 500mL IV ONE (16:18)
--- NOTE | 2022-05-23 16:24 | CT Scan Report ---
CT head/brain wo con CLINICAL HISTORY: 26 years-old Female with alejandra. Acute headache TECHNIQUE: Multiple axial CT images of the head were obtained without contrast. A dose lowering tech nique was utilized adhering to the principles of ALARA. COMPARISON: None. FINDINGS: No acute intracranial hemorrhage, midline shift, intracranial mass, hydrocephalus, territorial ischem ia or abnormal extra-axial collection. The calvarium is intact. The paranasal sinuses, mastoid air cells, and middle ear cavities are clear . IMPRESSION: No acute intracranial abnormality. ACT 112: Negative or not required by law. The above report was generated using voice recognition software. It may contain grammatical, syntax o r spelling errors. Electronically signed by: Gabriele Garcia M.D. 05/23/2022 4:23 PM
--- NOTE | 2022-05-23 16:31 | CT Scan Report ---
CT angio chest PE protocol CT DOSE: 1386.01 mGy.cm HISTORY: 26 years-old Female with PE. Acute chest pain with shortness of breath TECHNIQUE: Multiple CTA images of the chest were obtained after the intravenous administration of 120 ml Optiray. Coronal and sagittal MIPS were obtained from the axial data set and were submitted for review. All measurements were obtained according to NASCET criteria. A dose lowering technique was u tilized adhering to the principles of ALARA. COMPARISON: Chest radiograph of same day FINDINGS: CTA: There is adequate opacification of the pulmonary arteries to the level of the subsegmental branches w ithout convincing evidence of acute pulmonary embolism. Normal thoracic aorta.Heart size is normal. CT CHEST: No thyroid nodule. Residual thymic tissue of the anterior mediastinum. There is no lymphadenopathy. N o pneumothorax, pleural effusion, airspace consolidation or overt pulmonary edema. No suspicious pulm onary nodules or masses. The central airways are patent. Mild nonspecific distal esophageal wall thickening. The spleen is enlarged, 14.2 cm. Cholecystectomy. Unremarkable soft tissues. No acute fracture. IMPRESSION: 1. No acute intrathoracic abnormality. No pulmonary emboli. 2. Mild splenomegaly. 3. Cholecystectomy. 4. Mild nonspecific distal esophageal wall thickening. ACT 112: Negative or not required by law. The above report was generated using voice recognition software. It may contain grammatical, syntax o r spelling errors. Electronically signed by: Gabriele Garcia M.D. 05/23/2022 4:30 PM
--- NOTE | 2022-05-23 16:32 | Electrocardiogram Report ---
Test Reason : Blood Pressure : / mmHG Vent. Rate : 085 BPM Atrial Rate : 085 BPM P-R Int : 150 ms QRS Dur : 090 ms QT Int : 360 ms P-R-T Axes : 025 019 021 degrees QTc Int : 428 ms Normal sinus rhythm Poor R wave progression, consider anterior [place] vs. lead placement vs. LVH Abnormal ECG No previous ECGs available Confirmed by Jim Talavera ([id number]) on 05/23/2022 4:32:07 PM Referred By: Junior Dee Confirmed By:Jim Talavera
[2022-05-23] MEDS ORDERED: MAG SULFATE 6GM BOLUS FROM BAG IV ONE (19:42)
[2022-05-23] MEDS ORDERED: LABETALOL HCL IV 5 MG/ML 20ML IV PRN (19:42)
[2022-05-23] MEDS ORDERED: MAGNESIUM SULFATE / WTR 40 GM/1,000 ML BAG IV SCH (19:42)
--- NOTE | 2022-05-23 19:48 | OB/GYN Consultation ---
Date of Consultation May 23, 2022 Assessment & Plan (1) Pre-eclampsia: Patient with elevation in BP and headache that merit management as severe preeclampsia. The patient's lab values are reassuring, and her BP has not required treatment with antihypertensives, as it came down significantly whi le she has been in bed here. Will allow regular diet, I/O using urine hat, and monitor for at least overnight. Tylenol prn for ALANIZ. History of Present Illness Reason for Consultation: preeclampsia Attending Physician: Blanche Montanez MD History of Present Illness 26yo who is day 7 from a vaginal delivery complicated by severe preeclampsia and s/p magnesium therapy. She presented to the office today for BP check as scheduled, and was found to have severe range blood pressure x2, as well as complaint of headache and visual difficulties, as well as lightheadedness while using stairs at home. She was sent to the ER for evaluation. Due to additional complaint of chest pain upon arrival at the ER, she received a broad workup including CXR, CTA, EKG, Labs, serial vitals, exam. After the ER completed a workup and ruled out [place], Stroke, PE, etc, Dr. Bose consulted with me regarding preeclampsia with severe features. Although the patient's BP had improved markedly without any treatment, and was 120s/90s at that time, as well as her labs being reassuring, I discussed with him that her earlier BP measurements and her complaints of ALANIZ and vision change merited an admission for monitoring and magnesium therapy. The patient was willing to be admitted for this so long as her infant could stay with her, which we can of course accommodate. She was then transported to 4th floor where I meet and examine her now. She is with her mother who is here as a caregiver to the , who is also at bedside. The patient currently has a headache that she rates a 5 out of 10 and requests tylenol, which is what she has been using at home. Denies vision changes, chest pain, shortness of breath while at rest. She also says her edema has actually gone down significantly since delivery. Her vaginal bleeding was also decreasing significantly after she gave until today, when it has increased a bit. Hgb today in the ER is noted to have been 13.1. 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 Normal paps since Pre-eclampsia with last 2 pregnancies Surgical History History of adenoidectomy S/P cholecystectomy S/P tonsillectomy [place] teeth extracted Family History Grandmother (Maternal) Diabetes Hypertension Grandfather (Maternal) Diabetes Hypertension Grandmother (Paternal) Diabetes Hypertension Grandfather (Paternal) Diabetes Hypertension Sister Hemophilia Brother Asthma Mother Hypertension Denies family history of Ovarian cancer Prostate cancer Breast cancer Lung cancer Social History Smoking Status: Never smoker Second Hand Exposure: No; Hx Alcohol Use: No Hx Substance Use: No Preferred Language: Bermudian Communication Ability: Effective Public Health Worker Required: No Beliefs That Will Affect Care: None marital status: Single marital status details: GERRY Roberts ([id number]) [phone] Current Living Situation: Significant Other Current Living Situation Comment: FOB and children +1 dog current occupational status: employed 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 Feels Safe at Home: Yes Assistive Devices: None Physical Exam Constitutional: WD/WN, vitals as above Eyes: PERRL, conjunctivae normal, anicteric sclerae ENMT: external ear and nose normal, oropharynx normal Neck: supple Respiratory: normal respiratory effort and able to speak in complete sentences; no respiratory distress Auscultation: lungs clear to auscultation bilaterally; no crackles Cardiovascular: Rate/Rhythm: regular rate and regular rhythm Extremities: + pedal edema (trace, equal bilaterally) Gastrointestinal (Abdomen): postgravid and nontender Musculoskeletal: no cyanosis or clubbing, extremities motor strength 5/5 Skin: no rashes, warm and dry Neurologic: patellar DTR's 2+ bilat, sensation intact Psychiatric: A+Ox3, euthymic affect Lymphatic: no cervical or axillary lymphadenopathy Results & Data ([facility]) Vital Signs (Past 12 Hours) Vital Signs Temp Pulse Pulse Resp BP BP Pulse Ox 05/23/22 18:00 87 20 128/92 97 05/23/22 16:51 77 18 128/92 99 05/23/22 16:08 75 18 120/90 99 05/23/22 15:08 84 99 05/23/22 15:08 80 18 124/90 100 05/23/22 14:13 98.2 F 92 H 18 155/106 H 98 O2 Del Method 05/23/22 18:00 05/23/22 16:51 05/23/22 16:08 05/23/22 15:08 Room Air 05/23/22 15:08 05/23/22 14:13 Room Air
[2022-05-23] MEDS: LACTATED RINGER'S 1,000 ML IV SCH (20:00)
[2022-05-23] MEDS: ACETAMINOPHEN 325 MG TAB PO PRN (20:16)
[2022-05-24] MEDS: ACETAMINOPHEN 325 MG TAB PO PRN ×3 (00:15→08:29)
[2022-05-24] MEDS ORDERED: BUTALBITAL/ACETAMIN/CAFFEINE TAB PO PRN (09:05)
[2022-05-24] MEDS ORDERED: BUTALBITAL/ACETAMIN/CAFFEINE TAB PO STA (09:13)
[2022-05-24] MEDS: LACTATED RINGER'S 1,000 ML IV SCH (09:24)
[2022-05-24] MEDS ORDERED: IBUPROFEN 600 MG TAB PO STA (10:11)
--- NOTE | 2022-05-24 13:11 | Obstetrical Progress Note ---
Date of Service May 24, 2022 Assessment & Plan (1) Pre-eclampsia: no symptoms of PIH presently - will discharge her so she can accompany her son to [facility] [place] further evaluation she will alert medical staff at [facility] if she has a recurrent headache or other PIH symptoms. script for fioricet sent to her pharmacy. follow up for BP check in the next week. (2) Head ache: Subjective headache is now resolved after 1 fioricet and 600mg motrin. MgS04 has been stop ped. just received news that CTscan on son shows multiple brain hemorrhages and needs to be admitted at [facility]. patient is obviously upset with this news. wishes to be discharged so she can be with the baby. currently no PIH symptoms. BP's have been in normal range. Review of Systems All systems reviewed & are unremarkable except as noted in HPI & below Physical Exam Constitutional WD/WN, vitals as above Psychiatric A+Ox3, euthymic affect Results & Data ([facility]) Vital Signs (Past 12 Hours) Vital Signs Temp Pulse Resp BP Pulse Ox O2 Del Method 05/24/22 12:30 20 05/24/22 11:30 18 05/24/22 10:35 20 05/24/22 09:30 20 05/24/22 08:30 97.7 F 05/24/22 08:30 18 05/24/22 06:03 64 16 115/71 97 05/24/22 06:00 16 05/24/22 05:03 65 119/79 98 05/24/22 05:00 16 05/24/22 05:00 16 05/24/22 04:07 79 18 132/86 98 05/24/22 03:03 80 18 103/57 L 98 05/24/22 02:04 77 18 116/65 99 05/24/22 04:00 98.2 F 18 Room Air 05/24/22 04:00 18 05/24/22 03:00 18 05/24/22 02:00 18 Room Air 05/24/22 02:00 18
--- NOTE | 2022-05-24 22:41 | Electrocardiogram Report ---
Test Reason : Blood Pressure : / mmHG Vent. Rate : 078 BPM Atrial Rate : 078 BPM P-R Int : 140 ms QRS Dur : 092 ms QT Int : 374 ms P-R-T Axes : 029 047 027 degrees QTc Int : 426 ms Normal sinus rhythm with sinus arrhythmia Normal ECG When compared with ECG of 23-MAY-2022 15:02, No significant change was found Confirmed by Tamir Ibrahim ([id number]) on 05/24/2022 10:41:29 PM Referred By: Junior Dee Confirmed By:Tamir Ibrahim
--- NOTE | 2022-05-29 20:44 | Discharge Summary (DS) ---
DATE OF ADMISSION: 05/23/2022. DATE OF DISCHARGE: 05/24/2022. PRINCIPAL DIAGNOSIS: Preeclampsia with severe changes status post day #7 from vaginal delivery. HISTORY: The patient is a 26-year-old 3, para 3 female, who presented to the office for a blood pressure check following a spontaneous vaginal delivery following induction of labor because of severe preeclampsia. She did receive magnesium sulfate therapy during her admission for delivery. Her blood pressures after delivery had normalized and she was sent home on no blood pressure medication. She was seen in the office on the afternoon of 05/23/2022, and her blood pressure was in the severe range of 180/106. She was also complaining of a headache with visual changes and lightheadedness. She was sent to the emergency room for initial evaluation. She is also complaining of chest pain upon arrival in the emergency room. She had a chest x-ray, CT scan of her chest, EKG, labs and vital signs. There was no evidence of a PE, MO or stroke. Because of her blood pressure being elevated, she was admitted for magnesium sulfate therapy. Her blood pressures actually normalized quite quickly and her labs were also within normal limits. She had been on magnesium sulfate therapy for approximately 18 hours and still had a headache, she was rating a 6/10. She was given 1 Fioricet and 600mg ibuprofen and this resolved her headache completely. 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 CT scan of her baby was done while she was actually admitted in the hospital at our facility. She was told that her infant son would need to be taken to [facility] for further evaluation and treatment. The patient is understandably distraught and is requesting discharge at this time because of this diagnosis. Her blood pressures have been normal as has been her blood work, so sent her home with a prescription for the Fioricet to be taken as needed for the headache along with ibuprofen 600 mg every 6 hours as needed. She should alert the staff at [facility] while she was there with her son if her headache is not resolving or any other symptoms occur for further evaluation at their facility. Job ID: [id number] [facility]
== END 2022-05-24 13:20 | disposition home or self-care (01) ==
LOC: 4S1 14:08 → ED 14:08 → 4S1 19:26